=== PATIENT | female | born 1930 | race Caucasian/White ===

== ENCOUNTER 2018-01-05 07:10 | Emergency (ER) | payer OTHER, BC ==
[2018-01-05 07:21] VITALS: BMI 21.9
--- NOTE | 2018-01-05 07:24 | PDOC ---
History of Present Illness - General Chief Complaint: Lightheaded Stated Complaint: DIZZINESS Time Seen by Provider: 01/05/18 07:23 - History of Present Illness Initial Comments: 87-year-old female with PMHJ of HTN and multiple right hip procedures presents to the ED with complaints of lightheadedness when getting out of bed this morning. Says she felt well yesterday evening but when she got out of bed this morning she felt a bit lightheaded and felt the room was moving slightly so she took her Lasix and blood pressure medication. She denies nausea, vomiting, visual symptoms, or focal neurological deficit. She did not fall but states she was worried that she might so she came to the ED. Her PCP Dr. Reed told her to take her lasix whenever she feels dizzy and to come to the ED if she still isn't feeling well. Denies fevers, urinary symptoms, chills, SOB, cough, or recent illness. 01/05/18 07:25 Past History - Past Medical History Allergies/Adverse Reactions: Allergies Allergy/AdvReac Type Severity Reaction Status Date / Time No Known Drug Allergies Allergy Verified 01/05/18 07:21 Home Medications: Ambulatory Orders Alendronate Na [Fosamax] 70 mg PO Q7D 01/05/18 Metoprolol Succinate 100 mg PO DAILY 01/05/18 Nitrofurantoin Macrocrystal [Nitrofurantoin] 100 mg PO BID #10 capsule 01/05/18 Triamterene/Hydrochlorothiazid [Triamterene-Hctz 37.5-25 mg Tb] 1 each PO DAILY 01/05/18 Valsartan 320 mg PO DAILY 01/05/18 Anemia: No Asthma: No Cancer: No Cardiac Disorders: No CVA: No COPD: No CHF: No Dementia: No Diabetes: No GI Disorders: No Disorders: No HTN: Yes Hypercholesterolemia: No Liver Disease: No Seizures: No Thyroid Disease: No - Surgical History Abdominal Surgery: No Appendectomy: No Cardiac Surgery: No Cholecystectomy: No Lung Surgery: No Neurologic Surgery: No Orthopedic Surgery: Yes (RIGHT HIP AND LEG SURGERY) - Immunization History Immunization Up to Date: Yes - Suicide/Smoking/Psychosocial Hx Smoking Status: No Smoking History: Never smoked Have you smoked in the past 12 months: No Number of Cigarettes Smoked Daily: 0 If you are a former smoker, when did you quit?: 10 YRS Information on smoking cessation initiated: No Hx Alcohol Use: No Drug/Substance Use Hx: No Substance Use Type: None Hx Substance Use Treatment: No Review of Systems - Review of Systems Constitutional: No: Chills, Diaphoresis, Fever HEENTM: No: Blurred Vision, Tearing, Double Vision Respiratory: No: Cough, Shortness of Breath, Wheezing Cardiac (ROS): Yes: Lightheadedness. No: Edema, Irregular Heart Rate, Palpitations, Syncope, Chest Tightness ABD/GI: No: Constipated, Diarrhea, Nausea, Vomiting, Indigestion : No: Burning, Dysuria, Discharge Musculoskeletal: Yes: Joint Pain, Joint Stiffness Integumentary: No: Bruising, Flushing, Lesions, Lumps Neurological: Yes: Dizziness. No: Headache, Numbness, Paresthesia, Tremors, Weakness Psychiatric: No: Anxiety, Depression *Physical Exam - Vital Signs Last Vital Signs Temp Pulse Resp BP Pulse Ox 97 F L 66 16 150/72 100 01/05/18 07:19 01/05/18 07:19 01/05/18 07:19 01/05/18 07:19 01/05/18 07:19 - Physical Exam General Appearance: Yes: Nourished, Appropriately Dressed. No: Apparent Distress HEENT: positive: EOMI, COURTNEY, Normal ENT Inspection, Normal Voice Neck: positive: Trachea midline, Normal Thyroid, Supple. negative: Tender, Rigid Respiratory/Chest: negative: Chest Tender, Lungs Clear, Normal Breath Sounds ( RLLB crackles), Respiratory Distress, Accessory Muscle Use Cardiovascular: positive: Regular Rhythm, Regular Rate Gastrointestinal/Abdominal: positive: Normal Bowel Sounds, Flat, Soft. negative : Tender Musculoskeletal: positive: Decreased Range of Motion (right hip stiffness/ limited range of motion). negative: Normal Inspection Extremity: positive: Normal Capillary Refill, Normal Inspection, Normal Range of Motion. negative: Tender Integumentary: positive: Normal Color, Dry, Warm Neurologic: positive: Fully Oriented, Alert, Normal Mood/Affect, Normal Response. negative: Motor Strength 5/5 (5/5 in all extremeties except for right hip as above) ED Treatment Course - LABORATORY CBC & Chemistry Diagram: 01/05/18 07:40 01/05/18 07:38 Medical Decision Making - Medical Decision Making 87 year old female with chronic episodes of "dizziness" and lightheadensss that has been worked up extensively by Dr. Reed (including carotid dopplers and ENT evaluation) all without a determined pathology presenting with a slightly more bothersome "dizziness" episode. Unlcear if this is vertiginous, orthostatic, or supratentorial as the patient's labs demonsteated mild dehydration and her symptoms resolved with 500 mL NS. She also admits to the loss of her closest friend just two days prior so she beleives that she is feelign overall "very strange" since this event. Her UA demonstrated many WBCs, leuk esterase, and nitrites. We spoke to Dr. Reed @ 9:00 AM and he agreed with out discharge plan along with treatment for her UTI. Her EKG demonstrated NSR, QS 82, [id number] and without ST wave changes. 01/05/18 09:09 *DC/Admit/Observation/Transfer Diagnosis at time of Disposition: UTI (urinary tract infection) Qualifiers: Urinary tract infection type: acute cystitis Hematuria presence: with hematuria Qualified Code(s): N30.01 - Acute cystitis with hematuria - Discharge Dispostion Disposition: HOME Condition at time of disposition: Improved Admit: No - Prescriptions Prescriptions: Nitrofurantoin Macrocrystal [Nitrofurantoin] 100 mg PO BID #10 capsule - Referrals Referrals: Iván Reed MD [Primary Care Provider] - - Patient Instructions Printed Discharge Instructions: Urinary Tract Infection Additional Instructions: You have an infection of your urine and you were slightly dehydrated. Please drink plenty of fluid. Please take your antibiotics as directed. Please follow up with Dr. Reed in one week. Please return to the ED if you have new or worsening symptoms. - Post Discharge Activity
[2018-01-05] MEDS ORDERED: SODIUM CHLORIDE 0.9% 500 ML INFUS.BAG IV ONE (07:48)
[2018-01-05 07:53] LABS: BASO % 0.9 % (0-2.0); HEMATOCRIT 39.5 % (32.4-45.2); HEMOGLOBIN 13.4 GM/dL (10.7-15.3); LYMPH % 21.3 % (8-40); MCH 31.2 pg (25.7-33.7); MCHC 33.9 g/dl (32.0-36.0); MEAN CELL VOLUME 92.2 fl (80-96); MEAN PLT VOLUME 9.1 fl (7.5-11.1); MONO % 9.6 % (3.8-10.2); NEUT % 65.2 % (42.8-82.8); PLATELET COUNT 190 K/MM3 (134-434); RBC 4.28 M/mm3 (3.60-5.2); RDW 13.7 % (11.6-15.6); WHITE BLOOD COUNT 6.7 K/mm3 (4.0-10.0)
--- NOTE | 2018-01-05 07:56 | PDOC ---
Attending Attestation - HPI HPI: 01/05/18 08:04 The patient is a 87 year old female, with a significant past medical history of hypertension and right hip procedure, who presents to the emergency department with subjective lightheadedness this morning. She states Dr. Reed advised her to take one of her water pills which she reportedly took. She states she experiences intermittent dizziness with getting up from sitting, but denies that being new today. She reports her lightheadedness feels like room shifting, but denies room spinning sensation. She ambulates with a walker at baseline. She denies chest pain, shortness of breath, headache. She denies fever, chills, nausea, vomit, diarrhea and constipation. She denies dysuria, frequency, urgency and hematuria. Allergies: NKDA PCP: Dr. Reed - Physicial Exam PE: 01/05/18 08:04 Vitals: Triage vital signs reviewed General Appearance: No acute distress, well nourished, well developed Head: Atraumatic Eyes: Pupils equal reactive round, extraocular movement intact Neck: Supple; No nuchal rigidity Chest Wall: Nontender Cardiac: Regular rate and rhythm, no murmurs, no rubs, no gallops Lungs: Clear to auscultation bilateral, good air movement bilaterally Abdomen: Soft, nondistended, normal bowel sounds, nontender to palpation Extremities: Full range of motion to all extremities, no cyanosis, clubbing, or edema Skin: Warm and dry, no rashes or lesions, no rash, no petechiae Neuro: AOX3; Cranial Nerves 2-12 grossly intact, Strength intact to all extremities, Sensation intact to all extremities, Psych: Normal mood, normal affect - Medical Decision Making 01/05/18 08:05 This is a 87 year old female, with a significant PMHx of hypertension and right hip procedure, who presents to the emergency department with subjective lightheadedness this morning. Plan: Labs, medications, CXR, reassess 01/05/18 09:22 Documentation prepared by Olga Power, acting as medical secretary receptionist for Sav Saeed MD, <Olga Power - Last Filed: 01/05/18 09:22> - Resident Resident Name: Ninoska Walsh - ED Attending Attestation I have performed the following: I have examined & evaluated the patient, The case was reviewed & discussed with the resident, I agree w/resident's findings & plan, Exceptions are as noted - Medical Decision Making Reealuation patient feels much better ambulating comfortably around the emergency department with a steady gait. Urinalysis positive. Patient written for description of nitrofurantoin. Case discussed with patient's primary care provider Findings, the need for follow-up, strict return instructions discussed patient. <Sav Saeed - Last Filed: 01/05/18 14:06> Heart Score/ECG Review - ECG Impressions Comment:: 01/05/18 14:06 EKG performed at 7:33 AM demonstrates sinus rhythm with a ventricular rate of [address] elevations or T-wave inversions Interpreted by me. <Sav Saeed - Last Filed: 01/05/18 14:06>
[2018-01-05 08:13] LABS: URINE APPEARANCE CLOUDY; URINE BILIRUBIN NEGATIVE (<2.0 mg/dL); URINE BLOOD 1+ (NEGATIVE); URINE COLOR LTYELLOW; URINE GLUCOSE (UA) NEGATIVE (NEGATIVE); URINE KETONE NEGATIVE (NEGATIVE); URINE LEUK ESTERASE 3+ (NEGATIVE); URINE NITRITE POSITIVE (NEGATIVE); URINE PROTEIN NEGATIVE (NEGATIVE); URINE UROBILINOGEN NEGATIVE mg/dL (0.2-1.0)
[2018-01-05 08:16] LABS: EPI CELLS RARE /HPF (FEW); URINE BACTERIA MANY /hpf (NONE SEEN)
[2018-01-05 08:35] LABS: ALBUMIN 3.4 g/dl (3.4-5.0); ANION GAP 6 (8-16); BLOOD UREA NITROGEN 21 mg/dL (7-18); CALCIUM 8.3 mg/dL (8.5-10.1); CHLORIDE 107 mmol/L (98-107); CO2 27 mmol/L (21-32); GLUCOSE,RANDOM 97 mg/dL (74-106); SGPT/ALT 16 U/L (12-78); SODIUM 140 mmol/L (136-145)
[2018-01-05 08:39] LABS: ALK PHOS 85 U/L (45-117); BILIRUBIN,TOTAL 0.7 mg/dL (0.2-1.0); TOT PROT 6.3 g/dl (6.4-8.2)
[2018-01-05] MEDS ORDERED: MAG HYDROX/AL HYDROX/SIMETH 30 ML UNIT-DOSE CUP PO ONE (08:50)
[2018-01-05 08:51] LABS: POTASSIUM 4.3 mmol/L (3.5-5.1); SGOT/AST 25 U/L (15-37)
[2018-01-05 09:04] LABS: N-TERMINAL BNP 604.66 pg/ml (5-450)
[2018-01-05] MEDS ORDERED: MAG HYDROX/AL HYDROX/SIMETH 30 ML UNIT-DOSE CUP ONE (09:13)
[2018-01-05 09:43] VITALS: BP 153/74; PULSE 76; TEMP 98.1
--- NOTE | 2018-01-07 07:17 | PDOC ---
Patient Follow-up (Call Back) - Post ED Follow - Up Condition at time of discharge: Improved Disposition at time of original discharge: HOME Reason for Call Back: Abnwl. Microbiology (Urine culture preliminary report shows lactose fermenting negative bacilli. Patient currently on macrobid. Will await final report.)
--- NOTE | 2018-01-08 10:46 | EKG ---
Test Reason : Blood Pressure : / mmHG Vent. Rate : 065 BPM Atrial Rate : 065 BPM P-R Int : 174 ms QRS Dur : 082 ms QT Int : 404 ms P-R-T Axes : 051 040 052 degrees QTc Int : 420 ms NORMAL SINUS RHYTHM NORMAL ECG WHEN COMPARED WITH ECG OF 17-MAR-2016 16:25, NO SIGNIFICANT CHANGE WAS FOUND Confirmed by CYNTHIA BRISCOE MD ([id number]) on 01/08/2018 10:45:48 AM Referred By: Confirmed By:CYNTHIA BRISCOE MD
== END 2018-01-05 09:45 | disposition home or self-care (01) ==
LOC: JER 07:10
DX: N30.01 Acute cystitis with hematuria (principal); E86.0 Dehydration
CPT/HCPCS: 36415; 71045-TC-FY; 80053; 81003; 81015; 82550; 83880; 84484; 85025; 87086; 87186; 93005; 93010; 99284-25

== ENCOUNTER 2018-01-18 09:52 | Observation (INO) | payer OTHER, BC ==
[2018-01-18 10:30] VITALS: BMI 21.9
--- NOTE | 2018-01-18 11:09 | PDOC ---
History of Present Illness - General Chief Complaint: Lightheaded Stated Complaint: NAUSEA, DIZZINESS Time Seen by Provider: 01/18/18 10:22 History Source: Patient - History of Present Illness Associated Symptoms: denies: chest pain, diaphoresis, fever/chills, headaches, loss of appetite, malaise, nausea/vomiting, shortness of breath, syncope, weakness Past History - Past Medical History Allergies/Adverse Reactions: Allergies Allergy/AdvReac Type Severity Reaction Status Date / Time No Known Drug Allergies Allergy Verified 01/18/18 10:25 Home Medications: Ambulatory Orders Alendronate Na [Fosamax] 70 mg PO Q7D 01/05/18 Metoprolol Succinate 100 mg PO DAILY 01/05/18 Nitrofurantoin Macrocrystal [Nitrofurantoin] 100 mg PO BID #10 capsule 01/05/18 Nitrofurantoin Monohyd/M-Cryst [Macrobid -] 100 mg PO BID #10 capsule 01/05/18 Triamterene/Hydrochlorothiazid [Triamterene-Hctz 37.5-25 mg Tb] 1 each PO DAILY 01/05/18 Valsartan 320 mg PO DAILY 01/05/18 Anemia: No Asthma: No Cancer: No Cardiac Disorders: No CVA: No COPD: No CHF: No Dementia: No Diabetes: No GI Disorders: No Disorders: No HTN: Yes Hypercholesterolemia: No Liver Disease: No Seizures: No Thyroid Disease: No - Surgical History Abdominal Surgery: Yes (PT UNSURE) Appendectomy: No Cardiac Surgery: No Cholecystectomy: No Lung Surgery: No Neurologic Surgery: No Orthopedic Surgery: Yes (RIGHT HIP AND LEG SURGERY) - Immunization History Immunization Up to Date: Yes - Suicide/Smoking/Psychosocial Hx Smoking Status: No Smoking History: Former smoker Have you smoked in the past 12 months: No Number of Cigarettes Smoked Daily: 0 If you are a former smoker, when did you quit?: 10 YRS Information on smoking cessation initiated: No Hx Alcohol Use: No Drug/Substance Use Hx: No Substance Use Type: None Hx Substance Use Treatment: No Review of Systems - Review of Systems Constitutional: No: Chills, Fever, Loss of Appetite, Weakness Respiratory: No: Shortness of Breath Cardiac (ROS): Yes: Lightheadedness. No: Chest Pain, Edema, Palpitations, Syncope ABD/GI: No: Diarrhea, Nausea, Vomiting, Abdominal cramping : No: Dysuria, Flank Pain, Hematuria Neurological: Yes: Dizziness. No: Headache, Numbness, Tingling, Weakness *Physical Exam - Vital Signs Last Vital Signs Temp Pulse Resp BP Pulse Ox 97.6 F 74 19 153/70 98 01/18/18 10:26 01/18/18 10:26 01/18/18 10:26 01/18/18 10:01/18/18 10:26 - Physical Exam General Appearance: Yes: Appropriately Dressed. No: Apparent Distress HEENT: positive: Normal Voice Neck: positive: Supple Respiratory/Chest: positive: Lungs Clear, Normal Breath Sounds. negative: Respiratory Distress Cardiovascular: positive: Regular Rate, S1, S2 Gastrointestinal/Abdominal: positive: Soft. negative: Tender Extremity: negative: Pedal Edema Integumentary: positive: Dry, Warm Neurologic: positive: Fully Oriented, Alert, Normal Mood/Affect ED Treatment Course - LABORATORY CBC & Chemistry Diagram: 01/18/18 11:15 01/18/18 11:15 - RADIOLOGY Radiology Studies Ordered: Category Date Time Status CHEST X-RAY PORTABLE* [RAD] Stat Radiology 01/18/18 10:25 Ordered Medical Decision Making - Medical Decision Making 01/18/18 11:02 87-year-old female, history of hypertension, here with dizziness. Patient reports that the past 2-3 weeks has had lightheadedness mostly noticed upon walking that usually resolve on its own after several minutes. Does find that sometimes when she eats, dizziness resolves. No sensation of the room spinning , headache, visual changes, focal weakness, nausea, vomiting, chest pain, shortness of breath or syncope. No recent cardiac workup and no known history of CAD. Patient was seen in ED 2 weeks ago for dizziness and was diagnosed with UTI and discharged on Macrobid, which was sensitive on follow-up culture. Patient states she has seen since her PMD, Dr. Reed, and taken off her triamterene -hydrochlorothiazide med after informing M.D. that she has to wake up frequently throughout the night to urinate. States M.D. informed her that dizziness was due "to my age" as per patient. Currently asymptomatic at this time See exam Dizziness Unclear etiology at this time but possibly cardiac (given worsening upon walking ) vs metabolic, no infectious sxs but was tx for UTI 2 weeks ago, ? neuro but unlikely TIA/CVA given duration Stable and well chao w/ unremarkable exam -ekg -cxr -labs -m/l admit for further evaluation/cardiac w/u 01/18/18 12:52 Case d/w Dr Toney and pt admitted to obs *DC/Admit/Observation/Transfer Diagnosis at time of Disposition: Lightheaded - Discharge Dispostion Condition at time of disposition: Fair Decision to Admit order: Yes - Referrals Referrals: Iván Reed MD [Primary Care Provider] - - Patient Instructions - Post Discharge Activity
[2018-01-18 11:26] LABS: BASO % 1.1 % (0-2.0); EOS % 1.4 % (0-4.5); HEMATOCRIT 42.7 % (32.4-45.2); HEMOGLOBIN 14.3 GM/dL (10.7-15.3); LYMPH % 17.6 % (8-40); MCH 31.1 pg (25.7-33.7); MCHC 33.4 g/dl (32.0-36.0); MEAN CELL VOLUME 92.9 fl (80-96); MEAN PLT VOLUME 9.4 fl (7.5-11.1); MONO % 9.9 % (3.8-10.2); PLATELET COUNT 208 K/MM3 (134-434); RBC 4.59 M/mm3 (3.60-5.2); RDW 14.3 % (11.6-15.6); WHITE BLOOD COUNT 8.1 K/mm3 (4.0-10.0)
[2018-01-18 11:30] LABS: URINE APPEARANCE CLEAR; URINE BILIRUBIN NEGATIVE (<2.0 mg/dL); URINE COLOR STRAW; URINE GLUCOSE (UA) NEGATIVE (NEGATIVE); URINE KETONE NEGATIVE (NEGATIVE); URINE LEUK ESTERASE NEGATIVE (NEGATIVE); URINE NITRITE NEGATIVE (NEGATIVE); URINE PROTEIN NEGATIVE (NEGATIVE); URINE UROBILINOGEN NEGATIVE mg/dL (0.2-1.0)
--- NOTE | 2018-01-18 11:34 | PDOC ---
*Physical Exam - Vital Signs Last Vital Signs Temp Pulse Resp BP Pulse Ox 97.6 F 74 19 153/70 98 01/18/18 10:26 01/18/18 10:26 01/18/18 10:26 01/18/18 10:26 01/18/18 10:26 - Physical Exam Comments: 01/18/18 11:34 The patient was examined by [ALEX Wallis] under my direct supervision. I personally evaluated the patient. I concur with the above findings and the plan of care. ED Treatment Course - LABORATORY CBC & Chemistry Diagram: 01/18/18 11:15 01/19/18 06:00 - ADDITIONAL ORDERS Additional order review: Laboratory Results 01/18/18 11:15 Urine Color Straw Urine Appearance Clear Urine pH 6.0 Ur Specific [place] 1.005 Urine Protein Negative Urine Glucose (UA) Negative Urine Ketones Negative Urine Blood Negative Urine Nitrite Negative Urine Bilirubin Negative Urine Urobilinogen Negative Ur Leukocyte Esterase Negative 01/18/18 11:15 RBC 4.59 MCV 92.9 MCHC 33.4 RDW 14.3 MPV 9.4 Neutrophils % 70.0 Lymphocytes % 17.6 Monocytes % 9.9 Eosinophils % 1.4 Basophils % 1.1 *DC/Admit/Observation/Transfer Diagnosis at time of Disposition: Lightheaded - Discharge Dispostion Disposition: HOME Condition at time of disposition: Fair - Prescriptions - Referrals - Patient Instructions - Post Discharge Activity
--- NOTE | 2018-01-18 12:00 | EKG ---
Test Reason : Blood Pressure : / mmHG Vent. Rate : 058 BPM Atrial Rate : 058 BPM P-R Int : 164 ms QRS Dur : 070 ms QT Int : 420 ms P-R-T Axes : 070 020 042 degrees QTc Int : 412 ms POOR DATA QUALITY, INTERPRETATION MAY BE ADVERSELY AFFECTED SINUS BRADYCARDIA LOW VOLTAGE QRS BORDERLINE ECG WHEN COMPARED WITH ECG OF 05-JAN-2018 07:33, NO SIGNIFICANT CHANGE WAS FOUND Confirmed by SALO JOYNER MD ([id number]) on 01/18/2018 12:00:26 PM Referred By: Confirmed By:SALO JOYNER MD
[2018-01-18] MEDS ORDERED: SODIUM CHLORIDE 500 ML IV STA (13:19)
[2018-01-18 13:43] LABS: ALBUMIN 3.9 g/dl (3.4-5.0); ANION GAP 9 (8-16); BLOOD UREA NITROGEN 17 mg/dL (7-18); CALCIUM 9.6 mg/dL (8.5-10.1); CHLORIDE 101 mmol/L (98-107); CO2 28 mmol/L (21-32); GLUCOSE,RANDOM 91 mg/dL (74-106); POTASSIUM 4.1 mmol/L (3.5-5.1); SODIUM 138 mmol/L (136-145)
[2018-01-18 13:50] LABS: ALK PHOS 90 U/L (45-117); SGOT/AST 20 U/L (15-37); SGPT/ALT 16 U/L (12-78); TOT PROT 6.9 g/dl (6.4-8.2)
[2018-01-19 08:45] LABS: ALBUMIN 3.1 g/dl (3.4-5.0); BLOOD UREA NITROGEN 16 mg/dL (7-18); CHLORIDE 108 mmol/L (98-107); GLUCOSE,RANDOM 81 mg/dL (74-106); POTASSIUM 4.2 mmol/L (3.5-5.1); SGPT/ALT 14 U/L (12-78); SODIUM 142 mmol/L (136-145)
[2018-01-19 08:52] LABS: ALK PHOS 68 U/L (45-117); ANION GAP 4 (8-16); CALCIUM 8.4 mg/dL (8.5-10.1); CO2 30 mmol/L (21-32); CREATININE 0.9 mg/dL (0.55-1.02); SGOT/AST 18 U/L (15-37); TOT PROT 5.7 g/dl (6.4-8.2)
[2018-01-19 09:15] VITALS: BP 139/73; PULSE 69; TEMP 98
--- NOTE | 2018-01-19 12:50 | DS ---
Physical Examination Vital Signs: Vital Signs Temperature 98.0 F 01/19/18 09:14 Pulse Rate 69 01/19/18 09:14 Respiratory Rate 18 01/19/18 09:14 Blood Pressure 139/73 01/19/18 09:14 O2 Sat by Pulse Oximetry (%) 96 01/18/18 21:00 Labs: CBC, BMP 01/18/18 11:15 01/19/18 06:00 Discharge Summary Reason For Visit: LIGHTHEADEDNESS Current Active Problems Lightheaded (Acute) Condition: Fair - Instructions Referrals: Iván Reed MD [Primary Care Provider] - - Home Medications Comprehensive Discharge Medication List: Ambulatory Orders Alendronate Na [Fosamax] 70 mg PO Q7D 01/05/18 Metoprolol Succinate 100 mg PO DAILY 01/05/18 Valsartan 320 mg PO DAILY 01/05/18
--- NOTE | 2018-01-19 12:50 | HP ---
Admitting History and Physical - Smoking History Smoking history: Former smoker Have you smoked in the past 12 months: No Aproximately how many cigarettes per day: 0 If you are a former smoker, when did you quit?: 10 YRS - Alcohol/Substance Use Hx Alcohol Use: No Home Medications - Allergies Allergies/Adverse Reactions: Allergies Allergy/AdvReac Type Severity Reaction Status Date / Time No Known Drug Allergies Allergy Verified 01/18/18 10:25 - Home Medications Home Medications: Ambulatory Orders Alendronate Na [Fosamax] 70 mg PO Q7D 01/05/18 Metoprolol Succinate 100 mg PO DAILY 01/05/18 Valsartan 320 mg PO DAILY 01/05/18 Physical Examination Vital Signs: Vital Signs Temperature 98.0 F 01/19/18 09:14 Pulse Rate 69 01/19/18 09:14 Respiratory Rate 18 01/19/18 09:14 Blood Pressure 139/73 01/19/18 09:14 O2 Sat by Pulse Oximetry (%) 96 01/18/18 21:00 Labs: CBC, BMP 01/18/18 11:15 01/19/18 06:00
== END 2018-01-19 13:33 | disposition home or self-care (01) ==
LOC: JER 09:52 → JERBED 12:51 → J7W 14:50
PROVIDERS: ADMIT Internal Medicine; ATTEND Internal Medicine
PROC: 3E0337Z Introduction of Electrolytic and Water Balance Substance into Peripheral Vein, Percutaneous Approach (ICD-10-PCS; principal; 2018-01-18)
DX: R42 Dizziness and giddiness (principal); I10 Essential (primary) hypertension; Z87.891 Personal history of nicotine dependence
CPT/HCPCS: 36415; 70450-TC; 71045-TC-FY; 80053; 81003; 82550; 82607; 84484; 85025; 93005; 93010; 96360; 97116-GP; 97161-GP; 99284-25; G0378

== ENCOUNTER 2018-01-23 09:00 | Emergency (ER) | payer OTHER, BC ==
[2018-01-23 09:46] VITALS: TEMP 97.7; BMI 21.9
--- NOTE | 2018-01-23 10:12 | PDOC ---
History of Present Illness <Olga Power - Last Filed: 01/23/18 11:48> - History of Present Illness Initial Comments: 01/23/18 09:57 The patient is a 87 year old female, with a significant past medical history of hypertension, who presents to the emergency department with subjective lightheadedness this morning. The patient was recently admitted to the hospital for similar complaint, had normal lab work and head CT, and was discharged on 06/29. The patient states that upon discharge, Dr. Margaret Timmons advised to her to stop taking valsartan and her water pill and to decreased her metoprolol to 50mg from her usual 100mg. Pt states that she was told her dizziness was related to taking too many BP meds. She reports feeling well after discharge until she woke up today, when she experienced lightheadedness again. The patient states she was afraid to drive herself to the doctor and called EMS because she was concerned her blood pressure was low. However, EMS did not have a functional BP cuff, so pt was brought here. Pt reports that the lightheadedness seems to be triggered by her "nerves". She states that she received a notice last night that her cousin had . Pt currently denies any symptoms. States that her lightheadedness has resolved on its own. She denies chest pain, shortness of breath, headache. She denies fever, chills, nausea, vomit, diarrhea and constipation. She denies dysuria, frequency, urgency and hematuria. Allergies: NKDA PCP: Dr. Reed <Rj Hernandez - Last Filed: 01/23/18 12:00> - General Chief Complaint: Lightheaded Stated Complaint: Lightheaded Time Seen by Provider: 01/23/18 09:11 Past History <Olga Power - Last Filed: 01/23/18 11:48> - Past Medical History Anemia: No Asthma: No Cancer: No Cardiac Disorders: No CVA: No COPD: No CHF: No Dementia: No Diabetes: No GI Disorders: No Disorders: No HTN: Yes Hypercholesterolemia: No Liver Disease: No Seizures: No Thyroid Disease: No - Surgical History Abdominal Surgery: Yes (PT UNSURE) Appendectomy: No Cardiac Surgery: No Cholecystectomy: No Lung Surgery: No Neurologic Surgery: No Orthopedic Surgery: Yes (RIGHT HIP AND LEG SURGERY) - Immunization History Immunization Up to Date: Yes - Suicide/Smoking/Psychosocial Hx Smoking Status: No Smoking History: Never smoked Have you smoked in the past 12 months: No Number of Cigarettes Smoked Daily: 0 If you are a former smoker, when did you quit?: 10 YRS Information on smoking cessation initiated: No Hx Alcohol Use: No Drug/Substance Use Hx: No Substance Use Type: None Hx Substance Use Treatment: No <Rj Hernandez - Last Filed: 01/23/18 12:00> - Past Medical History Allergies/Adverse Reactions: Allergies Allergy/AdvReac Type Severity Reaction Status Date / Time No Known Drug Allergies Allergy Verified 01/23/18 09:45 Home Medications: Ambulatory Orders Alendronate Na [Fosamax (Weekly)] 70 mg PO Q7D 01/05/18 Metoprolol Succinate [Toprol XL -] 50 mg PO DAILY@0800 #30 tab.sr.24h 01/19/18 Review of Systems - Review of Systems Comments:: 01/23/18 10:12 """GENERAL/CONSTITUTIONAL: No fever or chills. No weakness. HEAD, EYES, EARS, NOSE AND THROAT: No change in vision. No ear pain or discharge. No sore throat. CARDIOVASCULAR: No chest pain or shortness of breath. RESPIRATORY: No cough, wheezing, or hemoptysis. GASTROINTESTINAL: No nausea, vomiting, diarrhea or constipation. GENITOURINARY: No dysuria, frequency, or change in urination. MUSCULOSKELETAL: No joint or muscle swelling or pain. No neck or back pain. SKIN: No rash NEUROLOGIC: (+) lightheaded. No headache, vertigo, loss of consciousness, or change in strength/sensation. ENDOCRINE: No increased thirst. No abnormal weight change. HEMATOLOGIC/LYMPHATIC: No anemia, easy bleeding, or history of blood clots. ALLERGIC/IMMUNOLOGIC: No hives or skin allergy. """ <Rj Hernandez - Last Filed: 01/23/18 12:00> *Physical Exam - Vital Signs Last Vital Signs Temp Pulse Resp BP Pulse Ox 97.7 F 82 16 152/76 100 01/23/18 09:43 01/23/18 09:43 01/23/18 09:43 01/23/18 09:43 01/23/18 09:43 <Olga Power - Last Filed: 01/23/18 11:48> - Vital Signs Last Vital Signs Temp Pulse Resp BP Pulse Ox 97.7 F 82 16 152/76 100 01/23/18 09:43 01/23/18 09:43 01/23/18 09:43 01/23/18 09:43 01/23/18 09:43 - Physical Exam Comments: 01/23/18 10:12 """GENERAL: Awake, alert, and fully oriented, in no acute distress. HEAD: No signs of trauma EYES: PERRLA, EOMI, sclera anicteric, conjunctiva clear ENT: Auricles normal inspection, hearing grossly normal, nares patent, oropharynx clear without exudates. Moist mucosa NECK: Nontender, no stepoffs, Normal ROM, supple, no lymphadenopathy, JVD, or masses LUNGS: Breath sounds equal, clear to auscultation bilaterally. No wheezes, and no crackles HEART: Regular rate and rhythm, normal S1 and S2, no murmurs, rubs or gallops ABDOMEN: Soft, nontender, normoactive bowel sounds. No guarding, no rebound. No masses EXTREMITIES: Normal range of motion, no edema. No clubbing or cyanosis. No cords, erythema, or tenderness NEUROLOGICAL: Cranial nerves II through XII intact. 5/5 strength and sensation in all extremities, Normal speech, normal gait, normal cerebellar function SKIN: Warm, Dry, normal turgor, no rashes or lesions noted. """ <OuRj - Last Filed: 01/23/18 12:00> Heart Score/ECG Review - ECG Impressions Comment:: 01/23/18 10:12 NSR, no [place]/STDs, no TWIs, axis wnl, intervals wnl, rate 75 <Ou,Rj - Last Filed: 01/23/18 12:00> ED Treatment Course - LABORATORY CBC & Chemistry Diagram: 01/23/18 10:50 01/23/18 10:50 - ADDITIONAL ORDERS Additional order review: Laboratory Results 01/23/18 01/23/18 01/23/18 10:50 10:50 10:50 Sodium 141 Potassium 3.8 Chloride 106 Carbon Dioxide 29 Anion Gap 6 L BUN 14 Creatinine 0.9 Creat Clearance w eGFR 59.51 Random Glucose 92 Calcium 8.6 Total Bilirubin 0.9 AST 16 ALT 18 Alkaline Phosphatase 85 Creatine Kinase 29 Troponin I < 0.02 Total Protein 6.3 L Albumin 3.4 Urine Color Straw Urine Appearance Clear Urine pH 6.0 Ur Specific [place] 1.006 Urine Protein Negative Urine Glucose (UA) Negative Urine Ketones Negative Urine Blood Negative Urine Nitrite Negative Urine Bilirubin Negative Urine Urobilinogen Negative Ur Leukocyte Esterase Negative 01/23/18 10:50 RBC 4.54 MCV 91.6 MCHC 33.8 RDW 14.0 MPV 9.1 Neutrophils % 71.3 Lymphocytes % 18.2 Monocytes % 9.3 Eosinophils % 0.6 Basophils % 0.6 <Olga Power - Last Filed: 01/23/18 11:48> - LABORATORY CBC & Chemistry Diagram: 01/23/18 10:50 01/23/18 10:50 <Rj Hernandez - Last Filed: 01/23/18 12:00> Medical Decision Making - Medical Decision Making 01/23/18 11:48 Dr. Reed called at the office. Case discussed at this time. <Olga Power - Last Filed: 01/23/18 11:48> - Medical Decision Making 01/23/18 10:14 87 F with transient lightheadedness. Was previously admitted earlier this month for same complaint. Had negative cardiac work up and head CT. Symptoms at the time were thought to be 2/2 BP meds. Pt is asymptomatic in the ED and hemodynamically stable. EKG normal, making cardiac event unlikely. Pt with no neuro deficits to suggest neurogenic cause of lightheadedness. - Labs, trop - UA - orthostatics 01/23/18 11:58 Labs wnl Orthostats wnl - standing BP 140/88 Pt ambulatory with steady gait Discussed with Dr. Reed, who will see pt in office this Tuesday. Pt is well appearing, with normal vitals. Clinically stable for DC at this time. I discussed the physical exam findings, ancillary test results and final diagnoses with the patient. I answered all of the patient's questions. The patient was satisfied with the care received and felt comfortable with the discharge plan and treatment plan. The patient agrees to follow up with the primary care physician within 24-72 hours. <Rj Hernandez - Last Filed: 01/23/18 12:00> *DC/Admit/Observation/Transfer <Olga Power - Last Filed: 01/23/18 11:48> - Attestations Physician Attestion: 01/23/18 11:59 I, Dr. Rj Hernandez MD, attest that this document has been prepared under my direction and personally reviewed by me in its entirety. I further attest, that it accurately reflects all work, treatment, procedures and medical decision -making performed by me. <Rj Hernandez - Last Filed: 01/23/18 12:00> Diagnosis at time of Disposition: Lightheaded - Discharge Dispostion Disposition: HOME - Referrals Referrals: Iván Reed MD [Primary Care Provider] - - Patient Instructions Printed Discharge Instructions: DI for Dizziness-Nonvertigo Additional Instructions: Please follow up with Dr. Reed this Tuesday. Continue taking your medications as instructed. If you experience recurrent dizziness, chest pain, shortness of breath, or any other concerning symptoms, return to the ER immediately. - Post Discharge Activity
--- NOTE | 2018-01-23 10:46 | EKG ---
Test Reason : Blood Pressure : / mmHG Vent. Rate : 075 BPM Atrial Rate : 075 BPM P-R Int : 156 ms QRS Dur : 066 ms QT Int : 398 ms P-R-T Axes : 049 008 032 degrees QTc Int : 444 ms NORMAL SINUS RHYTHM NORMAL ECG WHEN COMPARED WITH ECG OF 18-JAN-2018 11:14, NO SIGNIFICANT CHANGE WAS FOUND Confirmed by RENZO CASTELLON MD ([id number]) on 01/23/2018 10:45:42 AM Referred By: Confirmed By:RENZO CASTELLON MD
[2018-01-23 11:01] LABS: BASO % 0.6 % (0-2.0); EOS % 0.6 % (0-4.5); HEMATOCRIT 41.6 % (32.4-45.2); HEMOGLOBIN 14.1 GM/dL (10.7-15.3); LYMPH % 18.2 % (8-40); MCHC 33.8 g/dl (32.0-36.0); MEAN CELL VOLUME 91.6 fl (80-96); MEAN PLT VOLUME 9.1 fl (7.5-11.1); MONO % 9.3 % (3.8-10.2); NEUT % 71.3 % (42.8-82.8); PLATELET COUNT 196 K/MM3 (134-434); RBC 4.54 M/mm3 (3.60-5.2); WHITE BLOOD COUNT 6.9 K/mm3 (4.0-10.0)
[2018-01-23 11:02] LABS: URINE APPEARANCE CLEAR; URINE BILIRUBIN NEGATIVE (<2.0 mg/dL); URINE COLOR STRAW; URINE GLUCOSE (UA) NEGATIVE (NEGATIVE); URINE KETONE NEGATIVE (NEGATIVE); URINE LEUK ESTERASE NEGATIVE (NEGATIVE); URINE NITRITE NEGATIVE (NEGATIVE); URINE PROTEIN NEGATIVE (NEGATIVE); URINE UROBILINOGEN NEGATIVE mg/dL (0.2-1.0)
[2018-01-23 11:35] LABS: ALBUMIN 3.4 g/dl (3.4-5.0); ANION GAP 6 (8-16); BLOOD UREA NITROGEN 14 mg/dL (7-18); CALCIUM 8.6 mg/dL (8.5-10.1); CHLORIDE 106 mmol/L (98-107); CO2 29 mmol/L (21-32); CREATININE 0.9 mg/dL (0.55-1.02); GLUCOSE,RANDOM 92 mg/dL (74-106); POTASSIUM 3.8 mmol/L (3.5-5.1); SGOT/AST 16 U/L (15-37); SGPT/ALT 18 U/L (12-78); SODIUM 141 mmol/L (136-145)
[2018-01-23 11:37] LABS: ALK PHOS 85 U/L (45-117); BILIRUBIN,TOTAL 0.9 mg/dL (0.2-1.0); TOT PROT 6.3 g/dl (6.4-8.2)
[2018-01-23 14:28] VITALS: BP 145/86; PULSE 69
== END 2018-01-23 12:05 | disposition home or self-care (01) ==
LOC: JER 09:00
DX: R42 Dizziness and giddiness (principal); I10 Essential (primary) hypertension
CPT/HCPCS: 36415; 80053; 81003; 82550; 84484; 85025; 87086; 93005; 93010; 99282-25

== ENCOUNTER 2019-07-06 14:18 | Emergency (ER) | payer OTHER, BC ==
[2019-07-06 14:41] VITALS: BMI 23.5
--- NOTE | 2019-07-06 14:50 | PDOC ---
History of Present Illness - General Chief Complaint: Back Pain Stated Complaint: BACK PAIN Time Seen by Provider: 07/06/19 14:50 - History of Present Illness Initial Comments: 07/06/19 14:53 88 year old with a history of HTN and intermittent low back pain who presents from [facility] with worsening low back pain for 1 week. She [facility] which showed lumbar spinal stenosis. The patient was scheduled for an outpt MRI and prescribed celebrex. The patient reports that the pain has been worse around the low despite taking tylenol and celebrex and she does not feel she can wait until her MRI. The patient reports the pain is worse with any movement. She denies any numbness or tingling or any changes in sensation in the groin or legs. She denies any incontinence of stool or urine. She has no other complaints. ROS GENERAL/CONSTITUTIONAL: No fever or chills. No weakness. HEAD, EYES, EARS, NOSE AND THROAT: No change in vision. No ear pain or discharge. No sore throat. CARDIOVASCULAR: No chest pain or shortness of breath RESPIRATORY: No cough, wheezing, or hemoptysis. GASTROINTESTINAL: No nausea, vomiting, diarrhea or constipation. GENITOURINARY: No dysuria, frequency, or change in urination. MUSCULOSKELETAL: No joint or muscle swelling or pain. No neck + back pain. SKIN: No rash NEUROLOGIC: No headache, vertigo, loss of consciousness, or change in strength/ sensation. ENDOCRINE: No increased thirst. No abnormal weight change HEMATOLOGIC/LYMPHATIC: No anemia, easy bleeding, or history of blood clots. ALLERGIC/IMMUNOLOGIC: No hives or skin allergy. PE GENERAL: Awake, alert, and fully oriented, in no acute distress HEAD: No signs of trauma, normocephalic, atraumatic EYES: EOMI, sclera anicteric, conjunctiva clear ENT: oropharynx clear without exudates. Moist mucosa NECK: Normal ROM, supple LUNGS: No distress, speaks full sentences, clear to auscultation bilaterally HEART: Regular rate and rhythm, normal S1 and S2, no murmurs, rubs or gallops, peripheral pulses normal and equal bilaterally. ABDOMEN: Soft, nontender No guarding, no rebound. No masses BACK: +paraspinal and lumbar spinal tenderness, no step offs EXTREMITIES : Normal inspection, Normal range of motion, no edema. No clubbing or cyanosis. NEUROLOGICAL: Cranial nerves II through XII grossly intact. Normal speech, no focal sensorimotor deficits SKIN: Warm, Dry, normal turgor, no rashes or lesions noted MDM DDX including but not limited to: [facility] ED Course: robaxin and lidocaine patch given patient reassessed with imporvment of pain and able to ambulate at baseline patient ready for discharge, pending transport, endorsed to overnight team Clare Arellano PGY2 Emergency Medicine Past History - Past Medical History Allergies/Adverse Reactions: Allergies Allergy/AdvReac Type Severity Reaction Status Date / Time No Known Drug Allergies Allergy Verified 01/23/18 09:45 Home Medications: Ambulatory Orders Celecoxib [Celebrex -] 200 mg PO BID 07/06/19 Lidocaine 5% Patch [Lidoderm -] 1 patch TP DAILY #7 patch 07/06/19 Lidocaine 5% Patch [Lidoderm Patch -] 1 patch TP DAILY #30 patch 07/06/19 Meclizine HCl [Antivert -] 12.5 mg PO TID 07/06/19 Methocarbamol [Robaxin -] 500 mg PO BID #6 tablet 07/06/19 Methocarbamol [Robaxin -] 500 mg PO BID #60 tablet 07/06/19 Metoprolol Succinate 50 mg PO DAILY 07/06/19 Omeprazole Magnesium [Prilosec] 40 mg PO DAILY 07/06/19 Anemia: No Asthma: No Cancer: No Cardiac Disorders: No CVA: No COPD: No CHF: No Dementia: No Diabetes: No GI Disorders: No Disorders: No HTN: Yes Hypercholesterolemia: No Liver Disease: No Seizures: No Thyroid Disease: No - Surgical History Abdominal Surgery: Yes (PT UNSURE) Appendectomy: No Cardiac Surgery: No Cholecystectomy: No Lung Surgery: No Neurologic Surgery: No Orthopedic Surgery: Yes (RIGHT HIP AND LEG SURGERY) - Immunization History Immunization Up to Date: Yes - Psycho Social/Smoking Cessation Hx Smoking Status: No Smoking History: Never smoked Have you smoked in the past 12 months: No Number of Cigarettes Smoked Daily: 0 If you are a former smoker, when did you quit?: 10 YRS Information on smoking cessation initiated: No Hx Alcohol Use: No Drug/Substance Use Hx: No Substance Use Type: None Hx Substance Use Treatment: No *Physical Exam - Vital Signs Last Vital Signs Temp Pulse Resp BP Pulse Ox 97.7 F 68 18 151/54 L 98 07/06/19 14:39 07/06/19 14:39 07/06/19 14:39 07/06/19 14:39 07/06/19 14:39 Discharge - Discharge Information Problems reviewed: Yes Clinical Impression/Diagnosis: Low back pain Condition: Stable Disposition: HOME - Admission No - Additional Discharge Information Prescriptions: Lidocaine 5% Patch [Lidoderm -] 1 patch TP DAILY #7 patch Lidocaine 5% Patch [Lidoderm Patch -] 1 patch TP DAILY #30 patch Methocarbamol [Robaxin -] 500 mg PO BID #6 tablet Methocarbamol [Robaxin -] 500 mg PO BID #60 tablet - Follow up/Referral Referrals: Iván Reed MD [Primary Care Provider] - - Patient Discharge Instructions Patient Printed Discharge Instructions: DI for Low Back Pain Additional Instructions: You were seen in the ED for complaints of low back pain You had improvement with muscle relaxants and lidocaine patch You have been prescribed robaxin and lidocaine patch to be used until you can see your Family Doctor Please keep your MRI appointment Return to the ED if you have numbness, tingling, incontinence of urine or stool or any other concerning symptoms. - Post Discharge Activity
--- NOTE | 2019-07-06 15:03 | PDOC ---
Attending Attestation - Resident Resident Name: Clare Arellano - HPI HPI: 07/06/19 17:32 Pt with history of chronic back pain presents to the ED complaining of an acute exacerbation of her chronic back pain. Denies trauma, denies neurologic, bowel or bladder symptoms. Xrays done at the [facility] show spinal stenosis. Patient has follow up with pain management and MRI scheduled for next week. Presents today because the pain was severe and the patient did not want to wait for next week to get pain control. Requesting MRI today. - Physicial Exam PE: 07/06/19 17:37 Agree with resident exam. Patient is alert and oriented and in no acute distress. Ambulates with a walker at baseline--able to ambulate with help in the ED. No point tenderness, step off or deformity of her back. - Medical Decision Making 07/06/19 17:40 PT presents to the ED complaining of acute exacerbation of her chronic back pain. Imaging performed at the [facility] and is negative for fx. Patient already has follow up with pain management and outpt MRI. Feels improved with lidocaine patch and muscle relaxant in the ED. Will discharge home with instructions to follow up next week with PCP
[2019-07-06] MEDS ORDERED: LIDOCAINE 5% TOPICAL PATCH TP ONE (15:21)
[2019-07-06] MEDS ORDERED: METHOCARBAMOL 500 MG TABLET PO ONE (15:21)
[2019-07-06] MEDS ORDERED: METHOCARBAMOL 500 MG TABLET ONE (15:54)
[2019-07-06] MEDS ORDERED: LIDOCAINE 5% TOPICAL PATCH ONE (15:54)
[2019-07-06 17:24] VITALS: BP 142/80; PULSE 72; TEMP 97.8
== END 2019-07-06 19:00 | disposition home or self-care (01) ==
LOC: JER 14:18
DX: M54.5 Low back pain (principal); G89.29 Other chronic pain; I10 Essential (primary) hypertension
CPT/HCPCS: 99282-25

== ENCOUNTER 2019-07-17 21:18 | Emergency (ER) | payer OTHER, BC ==
[2019-07-17 21:36] VITALS: BP 102/50; PULSE 60; TEMP 97.8; BMI 23.5
--- NOTE | 2019-07-17 22:44 | PDOC ---
Documentation entered by Lilliam Brown SCRIBE, acting as scribe for Billie Espinal MD. Billie Espinal MD: This documentation has been prepared by the Kevin hardin Aiswarya, SCRIBE, under my direction and personally reviewed by me in its entirety. I confirm that the documentation accurately reflects all work, treatment, procedures, and medical decision making performed by me. History of Present Illness - General Chief Complaint: Injury Stated Complaint: FELL,HIT HEAD, DENIES LOC History Source: Patient Exam Limitations: No Limitations - History of Present Illness Initial Comments: 07/17/19 21:48 The patient is a 88 year old female, with a significant PMH of HTN, who presents to the emergency department via [facility] for evaluation of a fall that occurred today. The patient states she lost her balance and fell, hitting the occipital region of her head. Patient states she did not lose consciousness but reports head and neck pain. The patient denies any vision changes, numbness or tingling. Denies chest pain, shortness of breath , headache and dizziness. Denies fever, chills, nausea, vomit, diarrhea and constipation. PAST MEDICAL HISTORY: HTN PAST SURGICAL HISTORY: right hip and leg surgery FAMILY HISTORY: no pertinent history SOCIAL HISTORY: Pt lives with family and is employed. MEDICATIONS: reviewed ALLERGIES: As per nursing notes Adult ROS General: No fevers or chills, no weakness, no weight loss HEENT: No change in vision. No sore throat,. No ear pain CardioVascular: No chest pain or shortness of breath Respiratory:No cough, or wheezing. Gastrointestinal: no nausea, vomiting, diarrhea or constipation, No rectal bleeding Genitourinary: No dysuria, hematuria, or frequency Musculoskeletal: + neck pain Neurologic: No headache, vertigo, dizziness or loss of consciousness Psychiatric: nor depression Skin:+head contusion Endocrine: no increased thirst or abnormal weight change Allergic: no skin or latex allergy All other systems reviewed and normal Adult Exam: General: Well-nourished well-developed individual, no acute distress HEENT: Throat: Normal, tonsils normal, no erythema or exudate Neck: Supple, no meningeal signs, no lymphadenopathy Eyes::Pupils equal reactive and round, extraocular motion intact Chest: Nontender to palpation Cardiac: S1-S2 normal, regular rate and rhythm, no murmurs rubs or gallops Respiratory: Lungs clear to auscultation bilateral Abdomen: Soft, nondistended, normal bowel sounds, nontender to palpation diffusely Extremities: Warm, dry, no cyanosis, clubbing, or edema Skin: +contusion posterior occipital area. Skin intact.No rashes Neuro: Alert and oriented x3, nonfocal exam, grossly intact, normal gait Psych: Normal mood and affect Assessment and plan: This is a 88-year-old female who lives at the assisted living [facility]. Patient said she slipped lost her balance and fell hitting her posterior occipital area. Patient denies any loss of consciousness discern any other injury. On my exam patient did have a contusion in her posterior occipital area otherwise normal exam. Head CT was done which was negative for any acute intracranial pathology. Patient discharged back to the [facility]. 07/17/19 22:42 Past History - Past Medical History Allergies/Adverse Reactions: Allergies Allergy/AdvReac Type Severity Reaction Status Date / Time No Known Drug Allergies Allergy Verified 07/17/19 21:20 Home Medications: Ambulatory Orders Celecoxib [Celebrex] 200 mg PO BID 07/17/19 Meclizine HCl [Antivert -] 12.5 mg PO TID 07/17/19 Metoprolol Succinate 50 mg PO DAILY 07/17/19 Omeprazole Magnesium [Prilosec Otc] 40 mg PO DAILY 07/17/19 Anemia: No Asthma: No Cancer: No Cardiac Disorders: No CVA: No COPD: No CHF: No Dementia: No Diabetes: No GI Disorders: No Disorders: No HTN: Yes Hypercholesterolemia: No Liver Disease: No Seizures: No Thyroid Disease: No - Surgical History Abdominal Surgery: Yes (PT UNSURE) Appendectomy: No Cardiac Surgery: No Cholecystectomy: No Lung Surgery: No Neurologic Surgery: No Orthopedic Surgery: Yes (RIGHT HIP AND LEG SURGERY) - Immunization History Immunization Up to Date: Yes - Psycho Social/Smoking Cessation Hx Smoking Status: No Smoking History: Never smoked Have you smoked in the past 12 months: No Number of Cigarettes Smoked Daily: 0 If you are a former smoker, when did you quit?: 10 YRS Hx Alcohol Use: No Drug/Substance Use Hx: No Substance Use Type: None Hx Substance Use Treatment: No *Physical Exam - Vital Signs Last Vital Signs Temp Pulse Resp BP Pulse Ox 97.8 F 60 15 102/50 L 98 07/17/19 21:27 07/17/19 21:27 07/17/19 21:27 07/17/19 21:27 07/17/19 21:27 ED Treatment Course - RADIOLOGY Radiology Studies Ordered: Category Date Time Status HEAD CT WITHOUT CONTRAST [CT] Stat CT Scan 07/17/19 21:21 Completed Discharge - Discharge Information Problems reviewed: No Clinical Impression/Diagnosis: Scalp contusion Qualifiers: Encounter type: initial encounter Qualified Code(s): S00.03XA - Contusion of scalp, initial encounter Fall Qualifiers: Encounter type: initial encounter Qualified Code(s): W19.XXXA - Unspecified fall, initial encounter Condition: Stable - Follow up/Referral Referrals: Magdiel Nsasar MD [Staff Physician] - - Patient Discharge Instructions Additional Instructions: Tylenol or Motrin as needed for pain. Take Augmentin 1 tablet twice a day for 7 days. Return to the emergency department immediately with ANY new, persistent or worsening symptoms. Continue any medications as previously prescribed by your physician. You should follow up with your primary doctor as soon as possible regarding today's emergency department visit. . Please make sure your doctor reviews the results of your emergency evaluation. Thank you for coming to the Emergency Department today for your care. It was a pleasure to see you today. Please note that your evaluation is INCOMPLETE until you follow-up with your doctor. - Post Discharge Activity
== END 2019-07-17 22:56 | disposition home or self-care (01) ==
LOC: FER 21:18
DX: S00.03XA Contusion of scalp, initial encounter (principal); I10 Essential (primary) hypertension; W18.30XA Fall on same level, unspecified, initial encounter; Y93.9 Activity, unspecified; Y92.129 Unspecified place in nursing home as the place of occurrence of the external cause
CPT/HCPCS: 70450-TC; 99281-25

== ENCOUNTER 2019-10-02 16:11 | Emergency (ER) | payer OTHER, BC ==
[2019-10-02 16:39] VITALS: BP 175/77; PULSE 55; TEMP 97.6; BMI 23.1
--- NOTE | 2019-10-02 16:42 | PDOC ---
History of Present Illness <Andre Dubose - Last Filed: 10/02/19 18:56> <Marla Driver - Last Filed: 10/02/19 20:50> - General Chief Complaint: Injury Stated Complaint: FALL HIT HEAD Time Seen by Provider: 10/02/19 16:41 Past History - Past Medical History Anemia: No Asthma: No Cancer: No Cardiac Disorders: No CVA: No COPD: No CHF: No Dementia: No Diabetes: No GI Disorders: No Disorders: No HTN: Yes Hypercholesterolemia: No Liver Disease: No Seizures: No Thyroid Disease: No Other medical history: OSTEO ARTHRITIS. HIP FRACTURE - Surgical History Abdominal Surgery: Yes (PT UNSURE) Appendectomy: No Cardiac Surgery: No Cholecystectomy: No Lung Surgery: No Neurologic Surgery: No Orthopedic Surgery: Yes (RIGHT HIP AND LEG SURGERY) - Immunization History Immunization Up to Date: Yes - Psycho Social/Smoking Cessation Hx Smoking Status: No Smoking History: Never smoked Have you smoked in the past 12 months: No Number of Cigarettes Smoked Daily: 0 If you are a former smoker, when did you quit?: 10 YRS Information on smoking cessation initiated: No Hx Alcohol Use: No Drug/Substance Use Hx: No Substance Use Type: None Hx Substance Use Treatment: No <Andre Dubose - Last Filed: 10/02/19 18:56> <Marla Driver - Last Filed: 10/02/19 20:50> - Past Medical History Allergies/Adverse Reactions: Allergies Allergy/AdvReac Type Severity Reaction Status Date / Time No Known Drug Allergies Allergy Verified 07/17/19 21:20 Home Medications: Ambulatory Orders Acetaminophen 500 mg PO TID 10/02/19 Donepezil HCl [Aricept] 10 mg PO HS 10/02/19 Duloxetine HCl 30 mg PO BID 10/02/19 Meclizine HCl 25 mg PO TID 10/02/19 Memantine HCl [Namenda Xr] 28 mg PO DAILY 10/02/19 Metoprolol Succinate [Toprol Xl] 50 mg PO DAILY 10/02/19 Nitrofurantoin Monohyd/M-Cryst [Macrobid -] 100 mg PO BID #14 capsule 10/02/19 Omeprazole 40 mg PO DAILY 10/02/19 *Physical Exam - Vital Signs Last Vital Signs Temp Pulse Resp BP Pulse Ox 97.6 F 55 L 16 175/77 H 94 L 10/02/19 16:13 10/02/19 16:13 10/02/19 16:13 10/02/19 16:13 10/02/19 16:13 <Andre Dubose - Last Filed: 10/02/19 18:56> - Vital Signs Last Vital Signs Temp Pulse Resp BP Pulse Ox 97.6 F 55 L 16 175/77 H 94 L 10/02/19 16:13 10/02/19 16:13 10/02/19 16:13 10/02/19 16:13 10/02/19 16:13 <Marla Driver - Last Filed: 10/02/19 20:50> ED Treatment Course - LABORATORY CBC & Chemistry Diagram: 10/02/19 17:14 10/02/19 17:14 <Andre Dubose - Last Filed: 10/02/19 18:56> - LABORATORY CBC & Chemistry Diagram: 10/02/19 17:14 10/02/19 17:14 - ADDITIONAL ORDERS Additional order review: Laboratory Results 10/02/19 17:14 Sodium 137 Potassium 3.3 L Chloride 103 Carbon Dioxide 24 Anion Gap 10 BUN 18.0 Creatinine 0.8 Est GFR (CKD-EPI)AfAm 76.83 Est GFR (CKD-EPI)NonAf 66.29 Random Glucose 103 Calcium 8.9 Total Bilirubin 0.9 AST 18 ALT 18 Alkaline Phosphatase 91 Total Protein 6.2 L Albumin 3.4 10/02/19 17:14 RBC 4.25 MCV 95.0 MCHC 31.7 L RDW 14.2 MPV 9.0 Neutrophils % 80.1 Lymphocytes % 13.4 Monocytes % 5.7 Eosinophils % 0.6 Basophils % 0.2 <Marla Driver - Last Filed: 10/02/19 20:50> Medical Decision Making - Medical Decision Making 10/02/19 16:56 89F PMH HTN, OA BIBEMS from [facility] for mechanical fall x2 w/ head strike w/o LOC. Pt was ambulating with walker and legs gave out x2, was helped up by aide both times but not sent to ED after the first time because it was deemed unnecessary. Pt remembers the entire event. Denies chest pain, palpitations, n/ v. Denies poor PO intake, vomiting, diarrhea. Does state she always have vertigo which she takes meclizine for. Endorses prior right hip replacment. Denies current pain. CONSTITUTIONAL: Denies F / C HEENT: Denies headache, lightheadedness, dizziness, changes in vision / hearing RESP: Denies SOB, cough, orthopnea, DAMON CARD: Denies chest pain, palpitations GI: Denies N / V / D, abdominal pain, bloody stool, inability to tolerate PO : Endorses dysuria SKIN: Denies rashes NEURO: Denies numbness, tingling, weakness MSK: Denies neck, shoulder, back pain GEN: NAD, comfortable. AAOx3. HEENT: There is small (approx 2x2cm) right occipital scalp hematoma, no active bleeding, no other signs of trauma, CN II-XII grossly intact, EOMI, PERRL. No facial asymmetry. Normal voice. Supple neck w/ FROM, no midline TTP. CV: S1/S2, RRR, no m/r/g LUNG: CTAB, no wheezes, crackles, rales, rhonchi. GI: Soft, ndnt, +BS, no guarding, no rebound. No masses. EXTREMITIES: 1+ pitting edema LE. No obvious deformities of all extremities. FROM UE b/l. FROM LLE. Limited ROM on RLE (pt states has been like this since hip replacement). No bony TTP. BACK: No obvious deformities, no step offs, no midline TTP. There is no pelvic instability. No signs of trauma. SKIN: Warm, dry, no rashes appreciated. PSYCH: Normal mood and affect. NEURO: Moving all extremities. Symmetric Sensation. Ambulation deferred. 89F BIBEMS from [facility] for mechanical fall w/ head strike w/o LOC. Reliable historian. Small scalp hematoma, no active bleed. r/o ICH, r/o C-spine fracture, r/o shoulder/humerus fracture - CBC, CMP - UA - CT head neck - XR RShoulder 10/02/19 18:56 CT neg for acute pathology labs reviewed f/u shoulder XR f/u UA <Andre Dubose - Last Filed: 10/02/19 18:56> Discharge - Discharge Information Problems reviewed: Yes - Admission No <Andre Dubose - Last Filed: 10/02/19 18:56> <Villa,Marla J - Last Filed: 10/02/19 20:50> - Discharge Information Clinical Impression/Diagnosis: Fall Qualifiers: Encounter type: initial encounter Qualified Code(s): W19.XXXA - Unspecified fall, initial encounter UTI (urinary tract infection) Qualifiers: Urinary tract infection type: acute cystitis Hematuria presence: without hematuria Qualified Code(s): N30.00 - Acute cystitis without hematuria Condition: Stable Disposition: HOME - Additional Discharge Information Prescriptions: Nitrofurantoin Monohyd/M-Cryst [Macrobid -] 100 mg PO BID #14 capsule - Follow up/Referral Referrals: Iván Reed MD [Primary Care Provider] - - Patient Discharge Instructions Patient Printed Discharge Instructions: How to Prevent Falls Additional Instructions: Danielle is being discharged back to [facility] after her fall. Her labs were reassuring. Her CT of her head and neck were negative for bleeds or fracture. Shoulder xray revealed no fracture or dislocation Continue home medications as prescribed. Urinalysis revealed UTI ; Prescription for Nitrofurantoin will be sent to her pharmacy First dose of Nitrofurantoin given in the ER Immediately return to the Emergency Department if you experience: - numbness, tingling, weakness that is new - further falls - change in mental status - anything that concerns you - Post Discharge Activity
--- NOTE | 2019-10-02 17:20 | PDOC ---
Attending Attestation - Resident Resident Name: Andre Dubose - ED Attending Attestation I have performed the following: I have examined & evaluated the patient, The case was reviewed & discussed with the resident, I agree w/resident's findings & plan, Exceptions are as noted - HPI HPI: 10/02/19 17:26 Ms. turner is an 89 yo F with a significant PMH of HTN, who presents to the emergency department via [facility] for evaluation of TWO falls that occurred today. The patient states she lost her balance and fell. She was assisted to standing by the staff at the facility. After getting to standing, pt fell again, striking the back of her head No LOC No amnesia Pt did strike her head The patient denies any vision changes, numbness or tingling. Denies chest pain, shortness of breath, headache and dizziness. Denies fever, chills, nausea, vomit, diarrhea and constipation. PAST MEDICAL HISTORY: HTN PAST SURGICAL HISTORY: right hip and leg surgery MEDICATIONS: reviewed ALLERGIES: NKDA - Physicial Exam PE: 10/02/19 17:19 General: Well-nourished well-developed individual, no acute distress HEENT: Throat: Normal, tonsils normal, no erythema or exudate Neck: Supple, no meningeal signs, no lymphadenopathy Eyes::Pupils equal reactive and round, extraocular motion intact Chest: Nontender to palpation Cardiac: S1-S2 normal, regular rate and rhythm, no murmurs rubs or gallops Respiratory: Lungs clear to auscultation bilateral Abdomen: Soft, nondistended, normal bowel sounds, nontender to palpation diffusely Extremities: Warm, dry, no cyanosis, clubbing, or edema Skin: Neuro: Alert and oriented x3, nonfocal exam, grossly intact, normal gait Psych: Normal mood and affect - Medical Decision Making 10/02/19 17:37 This is a 89-year-old female [facility] Patient said she slipped lost her balance and fell hitting her posterior occipital area. Patient denies any loss of consciousness discern any other injury. Head CT was done which was negative for any acute intracranial pathology. 10/03/19 13:45 10/03/19 13:46 Laboratory Tests 10/02/19 10/02/19 17:14 17:14 WBC 10.3 Hgb 12.8 Hct 40.4 Plt Count 255 BUN 18.0 Creatinine 0.8 UA pending Signed out to Dr. Driver
[2019-10-02 17:30] LABS: BASO % 0.2 % (0-2.0); EOS % 0.6 % (0-4.5); HEMATOCRIT 40.4 % (32.4-45.2); HEMOGLOBIN 12.8 GM/dl (10.7-15.3); LYMPH % 13.4 % (8-40); MCH 30.1 pg (25.7-33.7); MCHC 31.7 g/dl (32.0-36.0); MONO % 5.7 % (3.8-10.2); NEUT % 80.1 % (42.8-82.8); PLATELET COUNT 255 K/MM3 (134-434); RBC 4.25 M/mm3 (3.60-5.2); RDW 14.2 % (11.6-15.6); WHITE BLOOD COUNT 10.3 K/mm3 (4.0-10.8)
[2019-10-02 17:46] LABS: ALBUMIN 3.4 g/dl (3.4-5.0); BILIRUBIN,TOTAL 0.9 mg/dl (0.2-1); CALCIUM 8.9 mg/dl (8.5-10); CREATININE 0.8 mg/dl (0.55-1.3); POTASSIUM 3.3 mmol/L (3.5-5.1); TOT PROT 6.2 g/dl (6.4-8.2)
--- NOTE | 2019-10-02 20:29 | PDOC ---
*Physical Exam - Vital Signs Last Vital Signs Temp Pulse Resp BP Pulse Ox 97.6 F 55 L 16 175/77 H 94 L 10/02/19 16:13 10/02/19 16:13 10/02/19 16:13 10/02/19 16:13 10/02/19 16:13 ED Treatment Course - LABORATORY CBC & Chemistry Diagram: 10/02/19 17:14 10/02/19 17:14 - ADDITIONAL ORDERS Additional order review: Laboratory Results 10/02/19 10/02/19 20:20 17:14 Sodium 137 Potassium 3.3 L Chloride 103 Carbon Dioxide 24 Anion Gap 10 BUN 18.0 Creatinine 0.8 Est GFR (CKD-EPI)AfAm 76.83 Est GFR (CKD-EPI)NonAf 66.29 Random Glucose 103 Calcium 8.9 Total Bilirubin 0.9 AST 18 ALT 18 Alkaline Phosphatase 91 Total Protein 6.2 L Albumin 3.4 Urine Color Yellow Urine Appearance Cloudy Urine pH 7.0 Urine Protein 1+ H Urine Glucose (UA) Negative Urine Ketones Trace Urine Blood 2+ H Urine Nitrite Negative Urine Bilirubin Negative Urine Urobilinogen 2.0 H Ur Leukocyte Esterase 1+ 10/02/19 17:14 RBC 4.25 MCV 95.0 MCHC 31.7 L RDW 14.2 MPV 9.0 Neutrophils % 80.1 Lymphocytes % 13.4 Monocytes % 5.7 Eosinophils % 0.6 Basophils % 0.2 Medical Decision Making - Medical Decision Making 10/02/19 20:54 Care of this patient received from Dr. Yip. Patient evaluated after a fall at the [facility]. Head CT/cervical spine CT/right shoulder x-ray all negative for acute pathology/injury. Urinalysis suggestive of UTI with 1+ LE and microscopic exam positive for RBC/ WBC and bacteria Urine culture and sensitivity pending Patient has history of UTI evaluated here in December,. At that time, she received nitrofurantoin for treatment. Patient given first dose of nitrofurantoin 100 mg now and 7-day course sent to her pharmacy. Discharge - Discharge Information Problems reviewed: Yes Clinical Impression/Diagnosis: Fall Qualifiers: Encounter type: initial encounter Qualified Code(s): W19.XXXA - Unspecified fall, initial encounter UTI (urinary tract infection) Qualifiers: Urinary tract infection type: acute cystitis Hematuria presence: without hematuria Qualified Code(s): N30.00 - Acute cystitis without hematuria Condition: Stable Disposition: HOME - Additional Discharge Information Prescriptions: Nitrofurantoin Monohyd/M-Cryst [Macrobid -] 100 mg PO BID #14 capsule Nitrofurantoin Monohyd/M-Cryst [Macrobid -] 100 mg PO BID #14 capsule - Follow up/Referral Referrals: Iván Reed MD [Primary Care Provider] - - Patient Discharge Instructions Patient Printed Discharge Instructions: How to Prevent Falls Additional Instructions: Danielle is being discharged back to [facility] after her fall. Her labs were reassuring. Her CT of her head and neck were negative for bleeds or fracture. Shoulder xray revealed no fracture or dislocation Continue home medications as prescribed. Urinalysis revealed UTI ; Prescription for Nitrofurantoin will be sent to her pharmacy([email or web address]) First dose of Nitrofurantoin given in the ER Immediately return to the Emergency Department if you experience: - numbness, tingling, weakness that is new - further falls - change in mental status - anything that concerns you - Post Discharge Activity
[2019-10-02] MEDS ORDERED: NITROFURANTOIN MACROCRYSTAL 50 MG CAPSULE (FP) ONE (20:36)
[2019-10-02] MEDS ORDERED: NITROFURANTOIN MACROCRYSTAL 50 MG CAPSULE (FP) PO SCH (20:45)
== END 2019-10-02 21:14 | disposition home or self-care (01) ==
LOC: FER 16:11
DX: N30.00 Acute cystitis without hematuria (principal); W01.0XXA Fall on same level from slipping, tripping and stumbling without subsequent striking against object, initial encounter; Y93.89 Activity, other specified; Y92.89 Other specified places as the place of occurrence of the external cause
CPT/HCPCS: 36415; 70450-TC; 72125-TC; 73030-TC-RT-FY; 80053; 81003; 81015; 85025; 87086; 99282-25

== ENCOUNTER 2019-10-08 13:34 | Inpatient (IN) | payer OTHER, BC ==
--- NOTE | 2019-10-08 14:19 | PDOC ---
Attending Attestation - Resident Resident Name: Kyle Haq - HPI HPI: 10/08/19 15:31 Pt presents to the ED after sent in from [place] for generalized weakness after recurrent UTI. Patient is also complaining of persistent dyuria despite completing a course of macrobid. Denies fever, nausea or vomiting or abdominal pain. Denies chest pain or shortness of breath. - Physicial Exam PE: 10/08/19 15:35 10/08/19 15:37 10/08/19 15:37 Gen: alert, NAD CV: rrr no murmurs Pulm: cta b/l Abdomen: soft, non tender, non distended without guarding or rebound. - Medical Decision Making 10/08/19 15:37 Pt presents to the ED complaining of generalized malaise and weakness after recent treatment for UTI. Patient still has persistent symptoms. Pyleonephritis vs persistent cystitis vs electrolyte disturbance. Will check labs and UA, reassess.
--- NOTE | 2019-10-08 14:27 | PDOC ---
History of Present Illness - General Chief Complaint: Altered Mental Status Stated Complaint: Altered Mental Status Time Seen by Provider: 10/08/19 14:02 - History of Present Illness Initial Comments: History limited 2/2 dementia. 89 y/o female with PMH significant for HTN, OA, dementia, sent in from [facility] today for weakness and dehydration. Per intermediate, she had a couple falls this month and has had increasing difficulty walking, requiring multiple aides. Pt was previously very independent 1 year ago. She was seen at [place] last week and CT head/c-spine were negative. No other falls since then. At bedside, pt reports mild burning on urination otherwise has no other concerns. Recently treated for UTI at on macrobid. No chest pain/shortness of breath. No headache. No cough/fever. No abdominal pain. No nausea/vomiting. No diarrhea. No blood in stool. Past History - Past Medical History Allergies/Adverse Reactions: Allergies Allergy/AdvReac Type Severity Reaction Status Date / Time No Known Drug Allergies Allergy Verified 07/17/19 21:20 Home Medications: Ambulatory Orders Acetaminophen 500 mg PO TID 10/02/19 Donepezil HCl [Aricept] 10 mg PO HS 10/02/19 Duloxetine HCl 30 mg PO BID 10/02/19 Meclizine HCl 25 mg PO TID 10/02/19 Metoprolol Succinate [Toprol Xl] 50 mg PO DAILY 10/02/19 Nitrofurantoin Monohyd/M-Cryst [Macrobid -] 100 mg PO BID #14 capsule 10/02/19 Omeprazole 40 mg PO DAILY 10/02/19 Memantine HCl [Namenda Xr] 28 mg PO DAILY 10/08/19 Anemia: No Asthma: No Cancer: No Cardiac Disorders: No CVA: No COPD: No CHF: No Dementia: No Diabetes: No GI Disorders: No Disorders: No HTN: Yes Hypercholesterolemia: No Liver Disease: No Seizures: No Thyroid Disease: No Other medical history: OA - Surgical History Abdominal Surgery: Yes (PT UNSURE) Appendectomy: No Cardiac Surgery: No Cholecystectomy: No Lung Surgery: No Neurologic Surgery: No Orthopedic Surgery: Yes (RIGHT HIP AND LEG SURGERY) - Immunization History Immunization Up to Date: Yes - Psycho Social/Smoking Cessation Hx Smoking Status: No Smoking History: Former smoker Have you smoked in the past 12 months: No Number of Cigarettes Smoked Daily: 0 If you are a former smoker, when did you quit?: 30yrs ago Information on smoking cessation initiated: No Hx Alcohol Use: No Drug/Substance Use Hx: No Substance Use Type: None Hx Substance Use Treatment: No Review of Systems - Review of Systems Comments:: GENERAL/CONSTITUTIONAL: No fever or chills. Reports generalized weakness. HEAD, EYES, EARS, NOSE AND THROAT: No change in vision. No change in hearing. No sore throat._ CARDIOVASCULAR: No chest pain or shortness of breath_ RESPIRATORY: Denies cough, hemoptysis_ GASTROINTESTINAL: No nausea, vomiting, diarrhea or constipation._ GENITOURINARY: Reports dysuria. No frequency, or change in urination._ MUSCULOSKELETAL: No joint or muscle swelling or pain. No neck or back pain._ SKIN: No rash_ NEUROLOGIC: No headache, vertigo, loss of consciousness. Reports gradual difficulty with ambulation over past month. ENDOCRINE: No increased thirst. HEMATOLOGIC/LYMPHATIC: No anemia, easy bleeding, or history of blood clots._ ALLERGIC/IMMUNOLOGIC: No hives or skin allergy._ *Physical Exam - Vital Signs Last Vital Signs Temp Pulse Resp BP Pulse Ox 97.5 F L 57 L 14 169/81 96 10/08/19 13:48 10/08/19 13:48 10/08/19 13:48 10/08/19 13:48 10/08/19 13:48 - Physical Exam GENERAL: Awake, alert, in no acute distress_ HEAD: No signs of trauma, normoc ephalic, atraumatic _ EYES: PERRLA, EOMI, sclera anicteric, conjunctiva clear_ ENT: Hearing grossly normal, nares patent, oropharynx clear without exudates. No uvular deviation. Moist mucosa_ NECK: Normal ROM, supple, no lymphadenopathy, JVD, or masses_ LUNGS: No distress, speaks in full sentences, clear to auscultation bilaterally _ HEART: Regular rate and rhythm, normal S1 and S2, no murmurs appreciated, peripheral pulses normal and equal bilaterally._ ABDOMEN: Soft, nontender, normoactive bowel sounds. No guarding, no rebound. No masses_ EXTREMITIES: Normal inspection, Normal range of motion, no edema. No clubbing or cyanosis_ NEUROLOGICAL: Cranial nerves II through XII grossly intact. Normal speech. Unable to assess gait. 5/5 strength and sensation in lower extremities. Cerebellar testing intact. SKIN: Warm, Dry, normal turgor, no rashes or lesions noted_ ED Treatment Course - LABORATORY CBC & Chemistry Diagram: 10/08/19 15:20 10/08/19 15:20 Medical Decision Making - Medical Decision Making 10/08/19 14:57 89 y/o female with PMH of HTN OA dementia presenting with weakness and dehydration. -cbc, cmp -ua, ucx -ekg, cxr, trop 10/08/19 16:00 EKG shows sinus bradycardia, no ST elevation/depression, no axis deviation, QTc 472. CXR shows no acute intra thoracic pathology. 10/08/19 16:56 -rocephin 1g 10/08/19 18:11 Labs reviewed. Laboratory Last Values WBC 9.4 K/mm3 (4.0-10.0) 10/08/19 15:20 RBC 4.45 M/mm3 (3.60-5.2) 10/08/19 15:20 Hgb 13.6 GM/dL (10.7-15.3) 10/08/19 15:20 Hct 41.5 % (32.4-45.2) 10/08/19 15:20 MCV 93.2 fl (80-96) 10/08/19 15:20 MCH 30.5 pg (25.7-33.7) 10/08/19 15:20 MCHC 32.7 g/dl (32.0-36.0) 10/08/19 15:20 RDW 14.4 % (11.6-15.6) 10/08/19 15:20 Plt Count 223 K/MM3 (134-434) 10/08/19 15:20 MPV 9.7 fl (7.5-11.1) 10/08/19 15:20 Absolute Neuts (auto) 6.6 K/mm3 (1.5-8.0) 10/08/19 15:20 Neutrophils % 69.9 % (42.8-82.8) 10/08/19 15:20 Lymphocytes % 18.6 % (8-40) 10/08/19 15:20 Monocytes % 9.3 % (3.8-10.2) 10/08/19 15:20 Eosinophils % 1.7 % (0-4.5) D 10/08/19 15:20 Basophils % 0.5 % (0-2.0) 10/08/19 15:20 Nucleated RBC % 0 % (0-0) 10/08/19 15:20 Sodium 138 mmol/L (136-145) 10/08/19 15:20 Potassium 3.8 mmol/L (3.5-5.1) 10/08/19 15:20 Chloride 103 mmol/L (98-107) 10/08/19 15:20 Carbon Dioxide 27 mmol/L (21-32) 10/08/19 15:20 Anion Gap 8 MMOL/L (8-16) 10/08/19 15:20 BUN 12.9 mg/dL (7-18) 10/08/19 15:20 Creatinine 0.7 mg/dL (0.55-1.3) 10/08/19 15:20 Est GFR (CKD-EPI)AfAm 90.29 10/08/19 15:20 Est GFR (CKD-EPI)NonAf 77.90 10/08/19 15:20 Random Glucose 90 mg/dL (74-106) 10/08/19 15:20 Calcium 9.1 mg/dL (8.5-10.1) 10/08/19 15:20 Total Bilirubin 1.6 mg/dL (0.2-1) H 10/08/19 15:20 AST 27 U/L (15-37) 10/08/19 15:20 ALT 18 U/L (13-61) 10/08/19 15:20 Alkaline Phosphatase 117 U/L (45-117) 10/08/19 15:20 Creatine Kinase 78 U/L (26-192) 10/08/19 15:20 Troponin I < 0.02 ng/ml (0.00-0.05) 10/08/19 15:20 Total Protein 6.3 g/dl (6.4-8.2) L 10/08/19 15:20 Albumin 3.0 g/dl (3.4-5.0) L 10/08/19 15:20 TSH 2.55 uIU/ml (0.358-3.74) 10/08/19 15:20 Urine Color Dk yellow 10/08/19 15:20 Urine Appearance Turbid 10/08/19 15:20 Urine pH 6.5 (5.0-8.0) 10/08/19 15:20 Ur Specific [place] 1.014 (1.010-1.035) 10/08/19 15:20 Urine Protein 1+ (NEGATIVE) H 10/08/19 15:20 Urine Glucose (UA) Negative (NEGATIVE) 10/08/19 15:20 Urine Ketones 1+ (NEGATIVE) H 10/08/19 15:20 Urine Blood 2+ (NEGATIVE) H 10/08/19 15:20 Urine Nitrite Negative (NEGATIVE) 10/08/19 15:20 Urine Bilirubin 1+ (NEGATIVE) H 10/08/19 15:20 Urine Urobilinogen 2.0 mg/dL (0.2-1.0) H 10/08/19 15:20 Ur Leukocyte Esterase 3+ (NEGATIVE) H 10/08/19 15:20 Urine WBC (Auto) 1185 /hpf (0-5) 10/08/19 15:20 Urine RBC (Auto) 15.3 /hpf (0-4) 10/08/19 15:20 Urine Casts (Auto) 8 /lpf (0-8) 10/08/19 15:20 U Epithel Cells (Auto) 4.0 /HPF (0-5/HPF) 10/08/19 15:20 Urine Bacteria (Auto) 145.9 /hpf (NEGATIVE) 10/08/19 15:20 Urine Yeast (Auto) None seen (NEGATIVE) 10/08/19 15:20 D/w Dr. Delong who accepts the patient for admission. 10/08/19 20:[address] Phoenix who requests that the patient be transferred to his service. Discharge - Discharge Information Problems reviewed: Yes Clinical Impression/Diagnosis: UTI (urinary tract infection) Qualifiers: Urinary tract infection type: acute cystitis Hematuria presence: without hematuria Qualified Code(s): N30.00 - Acute cystitis without hematuria Condition: Stable - Admission Yes - Follow up/Referral - Patient Discharge Instructions - Post Discharge Activity
[2019-10-08] MEDS ORDERED: SODIUM CHLORIDE 0.9% 500 ML INFUS.BAG IV ONE (15:00)
[2019-10-08 16:21] LABS: BASO % 0.5 % (0-2.0); EOS % 1.7 % (0-4.5); HEMATOCRIT 41.5 % (32.4-45.2); HEMOGLOBIN 13.6 GM/dL (10.7-15.3); LYMPH % 18.6 % (8-40); MCH 30.5 pg (25.7-33.7); MCHC 32.7 g/dl (32.0-36.0); MEAN CELL VOLUME 93.2 fl (80-96); MEAN PLT VOLUME 9.7 fl (7.5-11.1); MONO % 9.3 % (3.8-10.2); NEUT % 69.9 % (42.8-82.8); PLATELET COUNT 223 K/MM3 (134-434); RBC 4.45 M/mm3 (3.60-5.2); RDW 14.4 % (11.6-15.6); WHITE BLOOD COUNT 9.4 K/mm3 (4.0-10.0)
[2019-10-08 16:26] LABS: HYALINE CASTS 8 /lpf (0-8); PH,URINE 6.5 (5.0-8.0); URINE APPEARANCE TURBID; URINE BACTERIA 145.9 /hpf (NEGATIVE); URINE BILIRUBIN 1+ (NEGATIVE); URINE COLOR DK YELLOW; URINE GLUCOSE (UA) NEGATIVE (NEGATIVE); URINE KETONE 1+ (NEGATIVE); URINE LEUK ESTERASE 3+ (NEGATIVE); URINE NITRITE NEGATIVE (NEGATIVE); URINE PROTEIN 1+ (NEGATIVE); URINE WBC 1185 /hpf (0-5)
[2019-10-08] MEDS ORDERED: CEFTRIAXONE 1 GM in DEXTROSE 5%-WATER - 100 ML IVPB ONE (16:56)
[2019-10-08 17:00] LABS: BILIRUBIN,TOTAL 1.6 mg/dL (0.2-1); BLOOD UREA NITROGEN 12.9 mg/dL (7-18); CALCIUM 9.1 mg/dL (8.5-10.1); CREATININE 0.7 mg/dL (0.55-1.3); POTASSIUM 3.8 mmol/L (3.5-5.1); TOT PROT 6.3 g/dl (6.4-8.2)
[2019-10-08 17:03] LABS: URINE RBC 15.3 /hpf (0-4); YEAST NONE SEEN (NEGATIVE)
[2019-10-08] MEDS ORDERED: CEFTRIAXONE 1 GM/50 ML BAG ONE (17:15)
--- NOTE | 2019-10-08 19:44 | HP ---
CHIEF COMPLAINT: weakness PCP: HISTORY OF PRESENT ILLNESS: 89 year old female with a past medical history significant for HTN, osteoarthritis and dementia whowas sent in from [facility] today for weakness and dehydration. Per correction, she had a couple falls this past month and has had increasing difficulty walking. Patient was previously very independent 1 year ago. She was seen at [facility] last week. CT head/ c-spine were negative. No other falls since then. Patient reported mild burning on urination. She was recently treated for UTI at [facility] and was taking macrobid. She denied chest pain/shortness of breath, headache, cough/ fever or abdominal pain. No nausea/vomiting. No diarrhea. No blood in stool. Patient is awake and oriented to self and place. ER course/workup notable for: (1)Urinalysis with 3+ leukoesterase, 2+ blood and negative nitrite. She received a dose of IV Ceftriaaxone 1 gm. (2) EKG- sinus bradycardia heart rate 50's (3) CXR- no acute findings (4) normal TSH, CBC, electrolytes and renal studies Recent Travel: no PAST MEDICAL HISTORY: hypertension osteoarthritis dementia PAST SURGICAL HISTORY: right hip and leg surgery Social History: Smoking:no Alcohol:no Drugs: no Allergies No Known Drug Allergies Allergy (Verified 07/17/19 21:20) HOME MEDICATIONS: Home Medications Medication Instructions Recorded Acetaminophen 500 mg PO TID 10/02/19 Donepezil HCl [Aricept] 10 mg PO HS 10/02/19 Duloxetine HCl 30 mg PO BID 10/02/19 Meclizine HCl 25 mg PO TID 10/02/19 Metoprolol Succinate [Toprol Xl] 50 mg PO DAILY 10/02/19 Nitrofurantoin Monohyd/M-Cryst 100 mg PO BID #14 capsule 10/02/19 [Macrobid -] Omeprazole 40 mg PO DAILY 10/02/19 Memantine HCl [Namenda Xr] 28 mg PO DAILY 10/08/19 REVIEW OF SYSTEMS CONSTITUTIONAL: Absent: fever, chills, diaphoresis, generalized weakness, malaise, loss of appetite, weight change HEENT: Absent: rhinorrhea, nasal congestion, throat pain, throat swelling, difficulty swallowing, mouth swelling, ear pain, eye pain, visual changes CARDIOVASCULAR: Absent: chest pain, syncope, palpitations, irregular heart rate, lightheadedness , peripheral edema RESPIRATORY: Absent: cough, shortness of breath, dyspnea with exertion, orthopnea, wheezing, stridor, hemoptysis GASTROINTESTINAL: Absent: abdominal pain, abdominal distension, nausea, vomiting, diarrhea, constipation, melena, hematochezia GENITOURINARY: Absent: dysuria, frequency, urgency, hesitancy, hematuria, flank pain, genital pain MUSCULOSKELETAL: Absent: myalgia, arthralgia, joint swelling, back pain, neck pain SKIN: Absent: rash, itching, pallor HEMATOLOGIC/IMMUNOLOGIC: Absent: easy bleeding, easy bruising, lymphadenopathy, frequent infections ENDOCRINE: Absent: unexplained weight gain, unexplained weight loss, heat intolerance, cold intolerance NEUROLOGIC: Absent: headache, focal weakness or paresthesias, dizziness, unsteady gait, seizure, mental status changes, bladder or bowel incontinence PSYCHIATRIC: Absent: anxiety, depression, suicidal or homicidal ideation, hallucinations. PHYSICAL EXAMINATION Vital Signs - 24 hr 10/08/19 10/08/19 13:48 19:11 Temperature 97.5 F L 97.5 F L Pulse Rate 57 L Pulse Rate [ 59 L Right Radial] Respiratory 14 18 Rate Blood Pressure 169/81 Blood Pressure 183/60 H [Right Arm] O2 Sat by Pulse 96 94 L Oximetry (%) GENERAL: awake alert and oriented to self and place no acute distress HEAD: normal EYES: pupils equal round and reactive to light EARS, NOSE, THROAT: ears normal nares patent LUNGS: breath sounds equal clear to auscultation bilaterally no wheezing no crackles no use of accessory muscles HEART: regular rate and rhythm normal S1 and S2 without murmur ABDOMEN: soft nontender not distended MUSCULOSKELETAL: limited range of motion to lower extremities no CVA tenderness UPPER EXTREMITIES: 2+ pulses warm well-perfused no cyanosis LOWER EXTREMITIES: 2+ pulses warm well-perfused NEUROLOGICAL: normal speech no facial grimace no facial droop moving upper and lower extremities PSYCHIATRIC: cooperative good eye contact appropriate mood and affect SKIN: warm dry no rashes or lesions noted nail beds and lips pink Laboratory Results - last 24 hr 10/08/19 10/08/19 10/08/19 15:20 15:20 15:20 WBC 9.4 RBC 4.45 Hgb 13.6 Hct 41.5 MCV 93.2 MCH 30.5 MCHC 32.7 RDW 14.4 Plt Count 223 MPV 9.7 Absolute Neuts (auto) 6.6 Neutrophils % 69.9 Lymphocytes % 18.6 Monocytes % 9.3 Eosinophils % 1.7 D Basophils % 0.5 Nucleated RBC % 0 Sodium 138 Potassium 3.8 Chloride 103 Carbon Dioxide 27 Anion Gap 8 BUN 12.9 Creatinine 0.7 Est GFR (CKD-EPI)AfAm 90.29 Est GFR (CKD-EPI)NonAf 77.90 Random Glucose 90 Calcium 9.1 Total Bilirubin 1.6 H AST 27 ALT 18 Alkaline Phosphatase 117 Creatine Kinase 78 Troponin I < 0.02 Total Protein 6.3 L Albumin 3.0 L TSH 2.55 Urine Color Urine Appearance Urine pH Ur Specific [place] Urine Protein Urine Glucose (UA) Urine Ketones Urine Blood Urine Nitrite Urine Bilirubin Urine Urobilinogen Ur Leukocyte Esterase Urine WBC (Auto) Urine RBC (Auto) Urine Casts (Auto) U Epithel Cells (Auto) Urine Bacteria (Auto) Urine Yeast (Auto) 10/08/19 15:20 WBC RBC Hgb Hct MCV MCH MCHC RDW Plt Count MPV Absolute Neuts (auto) Neutrophils % Lymphocytes % Monocytes % Eosinophils % Basophils % Nucleated RBC % Sodium Potassium Chloride Carbon Dioxide Anion Gap BUN Creatinine Est GFR (CKD-EPI)AfAm Est GFR (CKD-EPI)NonAf Random Glucose Calcium Total Bilirubin AST ALT Alkaline Phosphatase Creatine Kinase Troponin I Total Protein Albumin TSH Urine Color Dk yellow Urine Appearance Turbid Urine pH 6.5 Ur Specific [place] 1.014 Urine Protein 1+ H Urine Glucose (UA) Negative Urine Ketones 1+ H Urine Blood 2+ H Urine Nitrite Negative Urine Bilirubin 1+ H Urine Urobilinogen 2.0 H Ur Leukocyte Esterase 3+ H Urine WBC (Auto) 1185 Urine RBC (Auto) 15.3 Urine Casts (Auto) 8 U Epithel Cells (Auto) 4.0 Urine Bacteria (Auto) 145.9 Urine Yeast (Auto) None seen ASSESSMENT/PLAN: Mrs. Gaytan is an 89 year old female with a past medical history significant for hypertension, osteoarthritis and dementia who presented from [facility] for weakness to lower extremities and dehydration. She was recently treated for UTI at [facility] and was taking macrobid. She was found to have an abnormal urinalysis. She is being admitted to the Medicine Service for further medical management. #1 UTI(Symptomatic) Currently afebrile, WBC normal, UA w/ 3+ leukoesterase, 2+ blood, negative nitrite Continue with IV Ceftaixone 1gm daily UA culture pending Check blood cultures Check renal US Consider ID evaluation when cultures are back #2 Hypertension Uncontrolled Continue with metoprolol succinate 50mg daily with blood pressure and heart rate parameters #3 Dementia Continue with aricept and namenda #4 Lower Extremity Weakness Hx of falls this past month and has had increasing difficulty walking,one year ago was independent, may be secondary to UTI Physical therapy consulted DVT Prophylaxsis lovenox 40mg daily FEN IVF NS @75cc/hr monitor electrolytes closely low sodium diet Visit type - Emergency Visit Emergency Visit: Yes ED Registration Date: 10/08/19 Care time: The patient presented to the Emergency Department on the above date and was hospitalized for further evaluation of their emergent condition. - New Patient This patient is new to me today: Yes Date on this admission: 10/08/19 - Critical Care Critical Care patient: No
[2019-10-08] MEDS ORDERED: SODIUM CHLORIDE 1,000 ML IV SCH (19:45)
[2019-10-08] MEDS ORDERED: ENOXAPARIN NA (PORCINE) 30 MG/0.3 ML DISP.SYRIN SQ ONE (20:19)
[2019-10-08] MEDS ORDERED: ENOXAPARIN NA (PORCINE) 40 MG/0.4 ML DISP.SYRIN SQ ONE (21:47)
[2019-10-08] MEDS: D5-1/2NS+20 MEQ KCL - 20 MEQ/1,000 ML INFUS.BAG IV SCH (21:53)
[2019-10-08] MEDS: ENOXAPARIN NA (PORCINE) 40 MG/0.4 ML DISP.SYRIN SQ SCH (21:53)
[2019-10-08] MEDS ORDERED: MECLIZINE HCL 25 MG TABLET (FP) PO SCH (22:00)
[2019-10-08] MEDS ORDERED: DONEPEZIL HCL 5 MG TABLET (FP) ONE (22:07)
[2019-10-08] MEDS ORDERED: DULoxetine HCL 30 MG CAPSULE.DR PO ONE (22:07)
[2019-10-08] MEDS: DULoxetine HCL 30 MG CAPSULE.DR PO SCH (22:21)
[2019-10-08] MEDS: DONEPEZIL HCL 10 MG TABLET (FP) PO SCH (22:21)
[2019-10-09] MEDS: D5-1/2NS+20 MEQ KCL - 20 MEQ/1,000 ML INFUS.BAG IV SCH ×2 (04:25→18:38)
[2019-10-09 09:12] LABS: BASO % 0.6 % (0-2.0); EOS % 4.1 % (0-4.5); HEMOGLOBIN 12.9 GM/dL (10.7-15.3); MCH 30.7 pg (25.7-33.7); MCHC 33.1 g/dl (32.0-36.0); MEAN CELL VOLUME 92.7 fl (80-96); MEAN PLT VOLUME 9.2 fl (7.5-11.1); MONO % 11.1 % (3.8-10.2); NEUT % 65.2 % (42.8-82.8); PLATELET COUNT 197 K/MM3 (134-434); RBC 4.21 M/mm3 (3.60-5.2); RDW 14.1 % (11.6-15.6)
[2019-10-09 09:56] LABS: ALBUMIN 2.7 g/dl (3.4-5.0); BILIRUBIN,TOTAL 1.4 mg/dL (0.2-1); BLOOD UREA NITROGEN 11.6 mg/dL (7-18); CALCIUM 8.5 mg/dL (8.5-10.1); CREATININE 0.6 mg/dL (0.55-1.3); TOT PROT 5.4 g/dl (6.4-8.2)
[2019-10-09] MEDS ORDERED: cefTRIAXone SODIUM 1 GM VIAL ONE (11:12)
[2019-10-09] MEDS ORDERED: PT OWN MED DRAWER 7, Y5N ONE ×2 (11:12→13:47)
[2019-10-09] MEDS ORDERED: DEXTROSE 5%-WATER - 50 ML IVPB ONE (11:13)
[2019-10-09] MEDS: CEFTRIAXONE 1 GM in DEXTROSE 5%-WATER - 50 ML IVPB SCH (11:17)
[2019-10-09] MEDS: PANTOPRAZOLE 40 MG TABLET PO SCH (11:17)
[2019-10-09] MEDS: MEMANTINE HCL 10 MG TABLET (FP) PO SCH ×2 (11:17→23:56)
[2019-10-09] MEDS: DULoxetine HCL 30 MG CAPSULE.DR PO SCH (11:18)
[2019-10-09] MEDS: ENOXAPARIN NA (PORCINE) 40 MG/0.4 ML DISP.SYRIN SQ SCH (11:18)
--- NOTE | 2019-10-09 11:32 | PN ---
Progress Note, Physician Chief Complaint: Patient seen and examined at the bedside, acute generalized muscle weakness, acute fatigue, depressed, no labored breathing, does not appear to be in any acute distress. History of Present Illness: This 89 yr old w/f with hx of hypertension, depression, dementia, degenerative joint disease of multiple sites and recurrent UTI admitted via ER with an acute UTI. - Current Medication List Current Medications: Active Medications Donepezil HCl (Aricept -) 10 mg PO HS [facility] Last Admin: 10/08/19 22:21 Dose: 10 mg Duloxetine HCl (Cymbalta -) 30 mg PO BID [facility] Last Admin: 10/09/19 11:18 Dose: 30 mg Enoxaparin Sodium (Lovenox -) 40 mg SQ DAILY [facility] Last Admin: 10/09/19 11:18 Dose: 40 mg Ceftriaxone Sodium 1 gm/ (Dextrose) 50 mls @ 100 mls/hr IVPB DAILY [facility] Last Admin: 10/09/19 11:17 Dose: 100 mls/hr Potassium Chloride/Dextrose/Sod Cl (D5-1/2ns+20 Meq Kcl -) 20 meq in 1,000 mls @ 50 mls/hr IV ASDIR [facility] Last Admin: 10/09/19 04:25 Dose: 50 mls/hr Memantine (Namenda -) 10 mg PO BID [facility] Last Admin: 10/09/19 11:17 Dose: 10 mg Metoprolol Succinate (Toprol Xl -) 50 mg PO DAILY [facility] Pantoprazole Sodium (Protonix -) 40 mg PO DAILY [facility] Last Admin: 10/09/19 11:17 Dose: 40 mg - Objective Vital Signs: Vital Signs Temperature 98 F 10/09/19 09:18 Pulse Rate 64 10/09/19 09:18 Respiratory Rate 18 10/09/19 09:18 Blood Pressure 149/70 10/09/19 09:18 O2 Sat by Pulse Oximetry (%) 94 L 10/09/19 06:20 Constitutional: Yes: Well Nourished, No Distress, Calm Eyes: Yes: Conjunctiva Clear, EOM Intact HENT: Yes: Atraumatic, Normocephalic Neck: Yes: Supple, Trachea Midline Cardiovascular: Yes: Regular Rate and Rhythm Respiratory: Yes: Regular, CTA Bilaterally Gastrointestinal: Yes: Normal Bowel Sounds, Soft ...Rectal Exam: Yes: Deferred Genitourinary: Yes: WNL Breast(s): Yes: WNL Musculoskeletal: Yes: Muscle Weakness Edema: No Peripheral Pulses WNL: Yes Peripheral Pulses: Left Radial: 2+, Right Radial: 2+, Left Doralis Pedis: 2+, Right Dorsalis Pedis: 2+, Left Femoral: 2+, Right Femoral: 2+ Integumentary: Yes: WNL Neurological: Yes: Alert, Unsteady Gait, Weakness ...Motor Strength: LUE (generalized muscle weakness) Psychiatric: Yes: Alert Labs: CBC, BMP 10/09/19 07:45 10/09/19 07:45 - ....Imaging Other: Report Reviewed (Lab data reviewed) Problem List - Problems (1) Hypokalemia Code(s): E87.6 - HYPOKALEMIA (2) Muscle weakness (generalized) Code(s): M62.81 - MUSCLE WEAKNESS (GENERALIZED) (3) Fatigue Code(s): R53.83 - OTHER FATIGUE (4) HTN (hypertension) Code(s): I10 - ESSENTIAL (PRIMARY) HYPERTENSION (5) Depression Code(s): F32.9 - MAJOR DEPRESSIVE DISORDER, SINGLE EPISODE, UNSPECIFIED (6) UTI (urinary tract infection) Code(s): N39.0 - URINARY TRACT INFECTION, SITE NOT SPECIFIED Qualifiers: Urinary tract infection type: acute cystitis Hematuria presence: without hematuria Qualified Code(s): N30.00 - Acute cystitis without hematuria Assessment/Plan Assessment/plan: acute UTI, acute generalized muscle weakness, acute fatigue, acute volume depletion, acute hypokalemia; IV fluids, IV potassium chloride, IV Ceftriaxone, Lovenox SQ, DVT prophylaxis, physical therapy, out of bed in chair as tolerated, SCDS.
[2019-10-09] MEDS ORDERED: DULoxetine HCL 30 MG CAPSULE.DR PO ONE (12:00)
--- NOTE | 2019-10-09 12:04 | EKG ---
Test Reason : Blood Pressure : / mmHG Vent. Rate : 053 BPM Atrial Rate : 053 BPM P-R Int : 164 ms QRS Dur : 072 ms QT Int : 504 ms P-R-T Axes : 041 -04 028 degrees QTc Int : 472 ms SINUS BRADYCARDIA OTHERWISE NORMAL ECG Confirmed by MD AVTAR, ROCKY ([id number]) on 10/09/2019 12:04:36 PM Referred By: Confirmed By:ROCKY NOVA MD
[2019-10-09] MEDS: KCL 10 MEQ IVPB 10 MEQ/100 ML INFUS.BAG IVPB SCH ×3 (12:37→16:44)
--- NOTE | 2019-10-09 13:49 | PN ---
Progress Note (short form) - Note Progress Note: Pt of Dr Reed No complaints except she has a poor appetite Vital Signs - 24 hr 10/08/19 10/08/19 10/08/19 13:48 19:11 19:30 Temperature 97.5 F L 97.5 F L 97.6 F Pulse Rate 57 L Pulse Rate [ 59 L 58 L Right Radial] Respiratory 14 18 18 Rate Blood Pressure 169/81 Blood Pressure 183/60 H 193/76 H [Right Arm] O2 Sat by Pulse 96 94 L 97 Oximetry (%) 10/09/19 10/09/19 10/09/19 03:52 05:30 06:05 Temperature 97.7 F 97.5 F L Pulse Rate 61 Pulse Rate [ 60 Right Radial] Respiratory 18 18 Rate Blood Pressure 182/75 H Blood Pressure 147/75 [Right Arm] O2 Sat by Pulse 92 L 94 L Oximetry (%) 10/09/19 10/09/19 10/09/19 06:20 07:06 09:18 Temperature 98 F Pulse Rate 58 L 64 Pulse Rate [ Right Radial] Respiratory 18 18 Rate Blood Pressure 159/79 149/70 Blood Pressure [Right Arm] O2 Sat by Pulse 94 L Oximetry (%) Current Medications Generic Name Dose Route Start Last Admin Trade Name Freq PRN Reason Stop Dose Admin Donepezil HCl 10 mg 10/08/19 22:00 10/08/19 22:21 Aricept - PO 10 mg HS [facility] Administration Duloxetine HCl 90 mg 10/10/19 10:00 Cymbalta - PO DAILY [facility] Enoxaparin Sodium 40 mg 10/08/19 20:15 10/09/19 11:18 Lovenox - SQ 40 mg DAILY [facility] Administration Ceftriaxone Sodium 1 gm/ 50 mls @ 100 mls/hr 10/09/19 10:00 10/09/19 11:17 Dextrose IVPB 100 mls/hr DAILY [facility] Administration Potassium Chloride/Dextrose/Sod Cl 20 meq in 1,000 mls @ 50 mls/hr 10/08/19 20 :30 10/09/19 04:25 D5-1/2ns+20 Meq Kcl - IV 50 mls/hr ASDIR [facility] Administration Potassium Chloride 10 meq in 100 mls @ 100 mls/hr 10/09/19 11:45 10/09/19 12: 37 Potassium Chloride 10 Meq Premix Ivpb - IVPB 10/09/19 14:44 100 mls/hr Q60M [facility] Administration Memantine 10 mg 10/09/19 10:30 10/09/19 11:17 Namenda - PO 10 mg BID [facility] Administration Metoprolol Succinate 50 mg 10/09/19 10:00 Toprol Xl - PO DAILY [facility] Pantoprazole Sodium 40 mg 10/09/19 10:00 10/09/19 11:17 Protonix - PO 40 mg DAILY [facility] Administration Laboratory Results - last 24 hr 10/08/19 10/08/19 10/08/19 15:20 15:20 15:20 WBC 9.4 RBC 4.45 Hgb 13.6 Hct 41.5 MCV 93.2 MCH 30.5 MCHC 32.7 RDW 14.4 Plt Count 223 MPV 9.7 Absolute Neuts (auto) 6.6 Neutrophils % 69.9 Lymphocytes % 18.6 Monocytes % 9.3 Eosinophils % 1.7 D Basophils % 0.5 Nucleated RBC % 0 Sodium 138 Potassium 3.8 Chloride 103 Carbon Dioxide 27 Anion Gap 8 BUN 12.9 Creatinine 0.7 Est GFR (CKD-EPI)AfAm 90.29 Est GFR (CKD-EPI)NonAf 77.90 Random Glucose 90 Calcium 9.1 Total Bilirubin 1.6 H AST 27 ALT 18 Alkaline Phosphatase 117 Creatine Kinase 78 Troponin I < 0.02 Total Protein 6.3 L Albumin 3.0 L Vitamin B12 TSH 2.55 Urine Color Urine Appearance Urine pH Ur Specific [place] Urine Protein Urine Glucose (UA) Urine Ketones Urine Blood Urine Nitrite Urine Bilirubin Urine Urobilinogen Ur Leukocyte Esterase Urine WBC (Auto) Urine RBC (Auto) Urine Casts (Auto) U Epithel Cells (Auto) Urine Bacteria (Auto) Urine Yeast (Auto) 10/08/19 10/09/19 10/09/19 15:20 07:45 07:45 WBC 8.0 RBC 4.21 Hgb 12.9 Hct 39.0 MCV 92.7 MCH 30.7 MCHC 33.1 RDW 14.1 Plt Count 197 MPV 9.2 Absolute Neuts (auto) 5.2 Neutrophils % 65.2 Lymphocytes % 19.0 Monocytes % 11.1 H Eosinophils % 4.1 D Basophils % 0.6 Nucleated RBC % 0 Sodium 140 Potassium 3.0 L Chloride 105 Carbon Dioxide 27 Anion Gap 8 BUN 11.6 Creatinine 0.6 Est GFR (CKD-EPI)AfAm 94.99 Est GFR (CKD-EPI)NonAf 81.95 Random Glucose 101 Calcium 8.5 Total Bilirubin 1.4 H AST 13 L ALT 16 Alkaline Phosphatase 104 Creatine Kinase Troponin I Total Protein 5.4 L Albumin 2.7 L Vitamin B12 406 TSH Urine Color Dk yellow Urine Appearance Turbid Urine pH 6.5 Ur Specific [place] 1.014 Urine Protein 1+ H Urine Glucose (UA) Negative Urine Ketones 1+ H Urine Blood 2+ H Urine Nitrite Negative Urine Bilirubin 1+ H Urine Urobilinogen 2.0 H Ur Leukocyte Esterase 3+ H Urine WBC (Auto) 1185 Urine RBC (Auto) 15.3 Urine Casts (Auto) 8 U Epithel Cells (Auto) 4.0 Urine Bacteria (Auto) 145.9 Urine Yeast (Auto) None seen s1 S2 RRR Lungs decreased Abd- soft, NT no edema Renal sono-- renal lipomatosis CXR-- no acute process EKG-- sinus bradycardia PLAN IV fluids Potassium being replaced iv antibiotics -urine cultures pending blood cultures add ensure supplement Problem List - Problems (1) Fatigue Code(s): R53.83 - OTHER FATIGUE (2) Hypokalemia Code(s): E87.6 - HYPOKALEMIA (3) Muscle weakness (generalized) Code(s): M62.81 - MUSCLE WEAKNESS (GENERALIZED) (4) UTI (urinary tract infection) Code(s): N39.0 - URINARY TRACT INFECTION, SITE NOT SPECIFIED Qualifiers: Urinary tract infection type: acute cystitis Hematuria presence: without hematuria Qualified Code(s): N30.00 - Acute cystitis without hematuria
[2019-10-09] MEDS: DONEPEZIL HCL 10 MG TABLET (FP) PO SCH (23:56)
[2019-10-10 08:52] LABS: BASO % 0.4 % (0-2.0); EOS % 7.8 % (0-4.5); HEMATOCRIT 37.7 % (32.4-45.2); HEMOGLOBIN 12.5 GM/dL (10.7-15.3); LYMPH % 23.5 % (8-40); MCH 30.9 pg (25.7-33.7); MCHC 33.2 g/dl (32.0-36.0); MEAN PLT VOLUME 8.9 fl (7.5-11.1); MONO % 11.3 % (3.8-10.2); PLATELET COUNT 191 K/MM3 (134-434); RBC 4.05 M/mm3 (3.60-5.2); RDW 14.4 % (11.6-15.6); WHITE BLOOD COUNT 7.7 K/mm3 (4.0-10.0)
[2019-10-10] MEDS ORDERED: cefTRIAXone SODIUM 1 GM VIAL ONE (08:59)
[2019-10-10] MEDS ORDERED: DEXTROSE 5%-WATER - 50 ML IVPB ONE (08:59)
[2019-10-10 09:19] LABS: ALBUMIN 2.6 g/dl (3.4-5.0); BLOOD UREA NITROGEN 10.2 mg/dL (7-18); CALCIUM 8.5 mg/dL (8.5-10.1); CREATININE 0.6 mg/dL (0.55-1.3); POTASSIUM 3.6 mmol/L (3.5-5.1); TOT PROT 5.2 g/dl (6.4-8.2)
[2019-10-10] MEDS: ENOXAPARIN NA (PORCINE) 40 MG/0.4 ML DISP.SYRIN SQ SCH (09:19)
[2019-10-10] MEDS: CEFTRIAXONE 1 GM in DEXTROSE 5%-WATER - 50 ML IVPB SCH (09:19)
[2019-10-10] MEDS: MEMANTINE HCL 10 MG TABLET (FP) PO SCH ×2 (09:19→21:36)
[2019-10-10] MEDS: PANTOPRAZOLE 40 MG TABLET PO SCH (09:19)
--- NOTE | 2019-10-10 10:27 | PN ---
Progress Note (short form) - Note Progress Note: ID consult dictated imp/reccd 89 yo female admitted from assisted living with generalized weakness, recent macrobid for 7 days after ED visit to COUNTS INCLUDE 234 BEDS AT [facility] on 10/02 still with dysuria and pyuria no history of MDRO weakness-?uti, ?macrobid UTI-continue ceftriaxone, f/u cultures mild dementia Problem List - Problems (1) Weakness Code(s): R53.1 - WEAKNESS (2) UTI (urinary tract infection) Code(s): N39.0 - URINARY TRACT INFECTION, SITE NOT SPECIFIED Qualifiers: Urinary tract infection type: acute cystitis Hematuria presence: without hematuria Qualified Code(s): N30.00 - Acute cystitis without hematuria (3) Dementia Code(s): F03.90 - UNSPECIFIED DEMENTIA WITHOUT BEHAVIORAL DISTURBANCE
[2019-10-10] MEDS: DULoxetine HCL 30 MG CAPSULE.DR PO SCH (11:29)
--- NOTE | 2019-10-10 12:14 | PN ---
Progress Note (short form) - Note Progress Note: Pt of Dr Reed No complaints except she has a poor appetite is depressed Vital Signs - 24 hr 10/09/19 10/09/19 10/09/19 14:00 18:05 19:47 Temperature 98.4 F 97.6 F Pulse Rate 61 60 64 Respiratory 18 18 Rate Blood Pressure 142/62 166/58 L 156/75 O2 Sat by Pulse Oximetry (%) 10/09/19 10/10/19 10/10/19 21:00 02:00 06:00 Temperature 97.5 F L 97.3 F L Pulse Rate 66 71 Respiratory 18 18 Rate Blood Pressure 153/71 154/84 O2 Sat by Pulse 95 Oximetry (%) 10/10/19 09:00 Temperature 97.3 F L Pulse Rate 66 Respiratory 18 Rate Blood Pressure 176/72 H O2 Sat by Pulse Oximetry (%) Current Medications Generic Name Dose Route Start Last Admin Trade Name Freq PRN Reason Stop Dose Admin Donepezil HCl 10 mg 10/08/19 22:00 10/09/19 23:56 Aricept - PO 10 mg HS [facility] Administration Duloxetine HCl 90 mg 10/10/19 10:00 10/10/19 11:29 Cymbalta - PO 90 mg DAILY [facility] Administration Enoxaparin Sodium 40 mg 10/08/19 20:15 10/10/19 09:19 Lovenox - SQ 40 mg DAILY [facility] Administration Ceftriaxone Sodium 1 gm/ 50 mls @ 100 mls/hr 10/09/19 10:00 10/10/19 09:19 Dextrose IVPB 100 mls/hr DAILY [facility] Administration Potassium Chloride/Dextrose/Sod Cl 20 meq in 1,000 mls @ 50 mls/hr 10/08/19 20 :30 10/09/19 18:38 D5-1/2ns+20 Meq Kcl - IV 50 mls/hr ASDIR [facility] Administration Memantine 10 mg 10/09/19 10:30 10/10/19 09:19 Namenda - PO 10 mg BID [facility] Administration Metoprolol Succinate 50 mg 10/09/19 10:00 10/10/19 09:43 Toprol Xl - PO 50 mg DAILY [facility] Administration Pantoprazole Sodium 40 mg 10/09/19 10:00 10/10/19 09:19 Protonix - PO 40 mg DAILY [facility] Administration Laboratory Results - last 24 hr 10/10/19 10/10/19 08:08 08:08 WBC 7.7 RBC 4.05 Hgb 12.5 Hct 37.7 MCV 93.0 MCH 30.9 MCHC 33.2 RDW 14.4 Plt Count 191 MPV 8.9 Absolute Neuts (auto) 4.4 Neutrophils % 57.0 Lymphocytes % 23.5 D Monocytes % 11.3 H Eosinophils % 7.8 H D Basophils % 0.4 Nucleated RBC % 0 Sodium 138 Potassium 3.6 Chloride 105 Carbon Dioxide 26 Anion Gap 6 L BUN 10.2 Creatinine 0.6 Est GFR (CKD-EPI)AfAm 94.99 Est GFR (CKD-EPI)NonAf 81.95 Random Glucose 106 Calcium 8.5 Total Bilirubin 1.0 AST 15 ALT 15 Alkaline Phosphatase 103 Total Protein 5.2 L Albumin 2.6 L Microbiology 10/08/19 15:20 Urine Culture - Preliminary Urine - Urine - Catheterized Proteus Species 10/09/19 03:30 Blood Culture - Preliminary Blood - Peripheral Venous NO GROWTH OBTAINED AFTER 24 HOURS, INCUBATION TO CONTINUE FOR 4 DAYS. 10/09/19 03:30 Blood Culture - Preliminary Blood - Peripheral Venous NO GROWTH OBTAINED AFTER 24 HOURS, INCUBATION TO CONTINUE FOR 4 DAYS. s1 S2 RRR Lungs decreased Abd- soft, NT no edema Renal sono-- renal lipomatosis CXR-- no acute process EKG-- sinus bradycardia PLAN IV fluids psych eval add remeron iv antibiotics -urine cultures proteus ID eval noted blood cultures negative add ensure supplement Problem List - Problems (1) Fatigue Code(s): R53.83 - OTHER FATIGUE (2) Hypokalemia Code(s): E87.6 - HYPOKALEMIA (3) Muscle weakness (generalized) Code(s): M62.81 - MUSCLE WEAKNESS (GENERALIZED) (4) UTI (urinary tract infection) Code(s): N39.0 - URINARY TRACT INFECTION, SITE NOT SPECIFIED Qualifiers: Urinary tract infection type: acute cystitis Hematuria presence: without hematuria Qualified Code(s): N30.00 - Acute cystitis without hematuria
--- NOTE | 2019-10-10 13:37 | PN ---
Progress Note, Physician Chief Complaint: Patient seen and examined at the bedside, poor appetite, feeling depressed, reports "I don't want to live anymore." History of Present Illness: This 89 yr old w/f with hx of mild dementia, hypertension, recurrent UTI, and depression admitted via ER with an acute UTI. - Current Medication List Current Medications: Active Medications Donepezil HCl (Aricept -) 10 mg PO [facility] Last Admin: 10/09/19 23:56 Dose: 10 mg Duloxetine HCl (Cymbalta -) 90 mg PO DAILY [facility] Last Admin: 10/10/19 11:29 Dose: 90 mg Enoxaparin Sodium (Lovenox -) 40 mg SQ DAILY [facility] Last Admin: 10/10/19 09:19 Dose: 40 mg Ceftriaxone Sodium 1 gm/ (Dextrose) 50 mls @ 100 mls/hr IVPB DAILY [facility] Last Admin: 10/10/19 09:19 Dose: 100 mls/hr Potassium Chloride/Dextrose/Sod Cl (D5-1/2ns+20 Meq Kcl -) 20 meq in 1,000 mls @ 50 mls/hr IV ASDIR [facility] Last Admin: 10/09/19 18:38 Dose: 50 mls/hr Memantine (Namenda -) 10 mg PO BID [facility] Last Admin: 10/10/19 09:19 Dose: 10 mg Metoprolol Succinate (Toprol Xl -) 50 mg PO DAILY [facility] Last Admin: 10/10/19 09:43 Dose: 50 mg Mirtazapine (Remeron -) 7.5 mg PO [facility] Pantoprazole Sodium (Protonix -) 40 mg PO DAILY [facility] Last Admin: 10/10/19 09:19 Dose: 40 mg - Objective Vital Signs: Vital Signs Temperature 97.3 F L 10/10/19 09:00 Pulse Rate 66 10/10/19 09:00 Respiratory Rate 18 10/10/19 09:00 Blood Pressure 176/72 H 10/10/19 09:00 O2 Sat by Pulse Oximetry (%) 95 10/09/19 21:00 Constitutional: Yes: Well Nourished, No Distress, Other (depressed) Eyes: Yes: Conjunctiva Clear, EOM Intact HENT: Yes: Atraumatic, Normocephalic Neck: Yes: Supple, Trachea Midline Cardiovascular: Yes: Regular Rate and Rhythm Respiratory: Yes: Regular, CTA Bilaterally Gastrointestinal: Yes: Normal Bowel Sounds, Soft ...Rectal Exam: Yes: Deferred Genitourinary: Yes: WNL Breast(s): Yes: WNL Musculoskeletal: Yes: Muscle Weakness Extremities: Yes: Other (generalized muscle weakness of all extremities) Edema: No Peripheral Pulses WNL: Yes Peripheral Pulses: Left Radial: 2+, Right Radial: 2+, Left Doralis Pedis: 2+, Right Dorsalis Pedis: 2+, Left Femoral: 2+, Right Femoral: 2+ Integumentary: Yes: WNL Neurological: Yes: Alert, Unsteady Gait, Weakness ...Motor Strength: LUE (generalized muscle weakness of all extremities) Psychiatric: Yes: Alert Labs: CBC, BMP 10/10/19 08:08 10/10/19 08:08 - ....Imaging Other: Report Reviewed (Lab data reviewed) Problem List - Problems (1) Hypokalemia Code(s): E87.6 - HYPOKALEMIA (2) Muscle weakness (generalized) Code(s): M62.81 - MUSCLE WEAKNESS (GENERALIZED) (3) Fatigue Code(s): R53.83 - OTHER FATIGUE (4) HTN (hypertension) Code(s): I10 - ESSENTIAL (PRIMARY) HYPERTENSION (5) Depression Code(s): F32.9 - MAJOR DEPRESSIVE DISORDER, SINGLE EPISODE, UNSPECIFIED (6) UTI (urinary tract infection) Code(s): N39.0 - URINARY TRACT INFECTION, SITE NOT SPECIFIED Qualifiers: Urinary tract infection type: acute cystitis Hematuria presence: without hematuria Qualified Code(s): N30.00 - Acute cystitis without hematuria Assessment/Plan Assessment/plan: acute UTI, acute exacerbation of depression, acute anorexia; IV fluids, IV Ceftriaxone, physical therapy, consult to Psychiatrist, DVT prophylaxis.
[2019-10-10] MEDS: LOSARTAN POTASSIUM 25 MG TABLET PO SCH (14:30)
--- NOTE | 2019-10-10 14:34 | CONS ---
INFECTIOUS DISEASE CONSULTATION DATE OF CONSULTATION: DATE OF DICTATION: 10/10/2019 HISTORY OF PRESENT ILLNESS: This is an 89-year-old woman who is living in assisted living. She has a history of some mild dementia. She was recently seen after a fall, October 02, [place]. At that time, she was noted to have a UTI and treated with Macrobid for 7 days. She is now sent back to the hospital with complaint of generalized weakness. Of note, she notes she still has some dysuria and overall she does not feel well. PAST MEDICAL HISTORY: She has a past medical history of hypertension, osteoarthritis, and dementia. SURGICAL HISTORY: She had right hip and leg surgery. SOCIAL HISTORY: She lives in assisted living. ALLERGIES: She has no known drug allergies. MEDICATIONS: As an outpatient include Aricept, duloxetine, meclizine, metoprolol, the recent Macrodantin, Namenda, as well as omeprazole. REVIEW OF SYSTEMS: She notes generalized weakness, some minimal dysuria. She overall states she does not feel well, but she has no abdominal or chest pain. She has no cough or shortness of breath. PHYSICAL EXAMINATION: Vital Signs: Her temperature is 97.3. She has been afebrile since admission. Pulse of 66, blood pressure 176/72, respiratory rate is 18. She is saturating 95% on room air. HEENT: She is normocephalic. Her eyes are anicteric. Neck: Supple. Lungs: Clear to auscultation. Heart: Regular rate and rhythm. Abdomen: Soft. Nontender. Extremities: Without edema. LABORATORIES: White count is 7.7, hemoglobin 12.5, platelets are 191. Her eosinophils are 7.8. BUN and creatinine are 10 and 0.6. LFTs are normal. Urinalysis has 2+ leuks with 1185 white cells. Urine culture is growing proteus. Blood cultures are negative. IMAGING: She had a chest x-ray done on admission that shows clear lungs. She had a renal ultrasound done that shows bilateral renal sinus lipomatosis with no stones or hydro. She is noted to have a gallbladder with a gallstone and no wall thickening. In summary, this is an 89-year-old woman with mild dementia, admitted for a UTI. Would continue ceftriaxone and follow up cultures. She has no history of multidrug-resistant organisms. Can hopefully transition her to oral antibiotics once the sensibilities are available. Further recommendations to follow. Rosette [id number]
[2019-10-10 15:14] VITALS: BMI 24.2
[2019-10-10] MEDS: D5-1/2NS+20 MEQ KCL - 20 MEQ/1,000 ML INFUS.BAG IV SCH (15:29)
--- NOTE | 2019-10-10 17:53 | CON.PSY ---
Psychiatry Consult Chief Complaint: 89 Cici old Female admitted for UTI from an assited living seen for Psych consult. apparantly said I dont want to live anymore. No reports of any self damging behavior. On anti depressants at this time. Symptoms: reports: Depressed Mood, Impaired Concentration, Memory Impairment - Previous Psychiatric Treatment Outpatient: None Inpatient: None - Previous Substance Abuse Treatment Outpatient: None Inpatient: None - Reason for Previous Treatment Reason for Previous Treatment: Major Depression - Current Medications Current Medications: Active Medications Donepezil HCl (Aricept -) 10 mg PO [facility] Last Admin: 10/09/19 23:56 Dose: 10 mg Duloxetine HCl (Cymbalta -) 90 mg PO DAILY [facility] Last Admin: 10/10/19 11:29 Dose: 90 mg Enoxaparin Sodium (Lovenox -) 40 mg SQ DAILY [facility] Last Admin: 10/10/19 09:19 Dose: 40 mg Ceftriaxone Sodium 1 gm/ (Dextrose) 50 mls @ 100 mls/hr IVPB DAILY [facility] Last Admin: 10/10/19 09:19 Dose: 100 mls/hr Potassium Chloride/Dextrose/Sod Cl (D5-1/2ns+20 Meq Kcl -) 20 meq in 1,000 mls @ 60 mls/hr IV ASDIR [facility] Last Admin: 10/10/19 15:29 Dose: 60 mls/hr Losartan Potassium (Cozaar -) 25 mg PO DAILY [facility] Last Admin: 10/10/19 14:30 Dose: 25 mg Memantine (Namenda -) 10 mg PO BID [facility] Last Admin: 10/10/19 09:19 Dose: 10 mg Metoprolol Succinate (Toprol Xl -) 50 mg PO DAILY [facility] Last Admin: 10/10/19 09:43 Dose: 50 mg Mirtazapine (Remeron -) 7.5 mg PO [facility] Pantoprazole Sodium (Protonix -) 40 mg PO DAILY [facility] Last Admin: 10/10/19 09:19 Dose: 40 mg - Allergies Allergies: Allergies Allergy/AdvReac Type Severity Reaction Status Date / Time No Known Drug Allergies Allergy Verified 07/17/19 21:20 - Current Living Status Usual Living Arrangement: Assisted Living - Current Mental Status Evaluation Appearance: Well Groomed Attitude: Cooperative - Affect Affect: Constrictive Appropriateness: Appropriate to Content - Mood Mood: Irritable - Speech/Language Expressive: Delayed - Psychomotor Activity Psychomotor Activity: Slowed - Thought Process Thought Process: Circumstantial - Thought Content Hallucinations: Absent Delusions: Absent - Self Perception Self Perception: No Impairment - Cognition Attention: Alert Memory, Immediate Recall: Impaired Memory, Short Term: 2/3 Memory, Remote with Promptin/3 - Concentration Serial Sevens Intact: No Simple Calculations Intact: No - Abstraction Proverb Interpretation: Impaired Judgement: Minimally Impaired - Insight Insight: Intact - Impulse Control Impulse Control: Good Control - Suicidal Ideation Suicidal Ideation: No - Homicidal Ideation Homicidal Ideation: No Assessment/Plan 1) Patient has no [place] Plans to kill herself, confused and forgetful. 2) continue with [facility] Psych meds.
[2019-10-10] MEDS: DONEPEZIL HCL 10 MG TABLET (FP) PO SCH (21:36)
[2019-10-10] MEDS ORDERED: MIRTAZAPINE 15 MG TABLET (FP) PO SCH (22:00)
[2019-10-11 09:12] LABS: BASO % 0.3 % (0-2.0); HEMATOCRIT 38.4 % (32.4-45.2); HEMOGLOBIN 12.7 GM/dL (10.7-15.3); LYMPH % 23.1 % (8-40); MCH 30.7 pg (25.7-33.7); MCHC 33.1 g/dl (32.0-36.0); MEAN CELL VOLUME 92.7 fl (80-96); MEAN PLT VOLUME 9.3 fl (7.5-11.1); MONO % 11.2 % (3.8-10.2); NEUT % 56.4 % (42.8-82.8); PLATELET COUNT 199 K/MM3 (134-434); RBC 4.14 M/mm3 (3.60-5.2); RDW 14.5 % (11.6-15.6)
[2019-10-11] MEDS: D5-1/2NS+20 MEQ KCL - 20 MEQ/1,000 ML INFUS.BAG IV SCH ×2 (09:23→10:13)
[2019-10-11 09:54] LABS: ALBUMIN 2.8 g/dl (3.4-5.0); BILIRUBIN,TOTAL 0.9 mg/dL (0.2-1); BLOOD UREA NITROGEN 11.2 mg/dL (7-18); CREATININE 0.7 mg/dL (0.55-1.3); TOT PROT 5.6 g/dl (6.4-8.2)
[2019-10-11] MEDS ORDERED: DEXTROSE 5%-WATER - 50 ML IVPB ONE (10:03)
[2019-10-11] MEDS ORDERED: cefTRIAXone SODIUM 1 GM VIAL ONE (10:03)
[2019-10-11] MEDS: PANTOPRAZOLE 40 MG TABLET PO SCH (10:12)
[2019-10-11] MEDS: CEFTRIAXONE 1 GM in DEXTROSE 5%-WATER - 50 ML IVPB SCH (10:12)
[2019-10-11] MEDS: LOSARTAN POTASSIUM 25 MG TABLET PO SCH (10:13)
[2019-10-11] MEDS: MEMANTINE HCL 10 MG TABLET (FP) PO SCH (10:13)
[2019-10-11] MEDS: ENOXAPARIN NA (PORCINE) 40 MG/0.4 ML DISP.SYRIN SQ SCH (10:13)
[2019-10-11] MEDS: DULoxetine HCL 30 MG CAPSULE.DR PO SCH (11:51)
--- NOTE | 2019-10-11 13:16 | PN ---
Progress Note (short form) - Note Progress Note: spoke with DR Aguilar-- he will resume care of pt Problem List - Problems (1) Fatigue Code(s): R53.83 - OTHER FATIGUE (2) Hypokalemia Code(s): E87.6 - HYPOKALEMIA (3) Muscle weakness (generalized) Code(s): M62.81 - MUSCLE WEAKNESS (GENERALIZED) (4) UTI (urinary tract infection) Code(s): N39.0 - URINARY TRACT INFECTION, SITE NOT SPECIFIED Qualifiers: Urinary tract infection type: acute cystitis Hematuria presence: without hematuria Qualified Code(s): N30.00 - Acute cystitis without hematuria
--- NOTE | 2019-10-11 13:18 | PN ---
Progress Note, Physician Chief Complaint: Patient seen and examined at the bedside, appears less depressed, fair appetite , better mood. History of Present Illness: This 89 yr old w/f with hx of hypertension, dementia, recurrent UTI, and depression admitted via ER with acute exacerbation of UTI, and acute dehydration. - Current Medication List Current Medications: Active Medications Donepezil HCl (Aricept -) 10 mg PO HS [facility] Last Admin: 10/10/19 21:36 Dose: 10 mg Duloxetine HCl (Cymbalta -) 90 mg PO DAILY [facility] Last Admin: 10/11/19 11:51 Dose: 90 mg Enoxaparin Sodium (Lovenox -) 40 mg SQ DAILY [facility] Last Admin: 10/11/19 10:13 Dose: 40 mg Ceftriaxone Sodium 1 gm/ (Dextrose) 50 mls @ 100 mls/hr IVPB DAILY [facility] Last Admin: 10/11/19 10:12 Dose: 100 mls/hr Potassium Chloride/Dextrose/Sod Cl (D5-1/2ns+20 Meq Kcl -) 20 meq in 1,000 mls @ 60 mls/hr IV ASDIR [facility] Last Admin: 10/11/19 10:13 Dose: 60 mls/hr Losartan Potassium (Cozaar -) 25 mg PO DAILY [facility] Last Admin: 10/11/19 10:13 Dose: 25 mg Memantine (Namenda -) 10 mg PO BID [facility] Last Admin: 10/11/19 10:13 Dose: 10 mg Metoprolol Succinate (Toprol Xl -) 50 mg PO DAILY [facility] Last Admin: 10/11/19 10:12 Dose: 50 mg Mirtazapine (Remeron -) 7.5 mg PO HS [facility] Last Admin: 10/10/19 21:36 Dose: 7.5 mg Pantoprazole Sodium (Protonix -) 40 mg PO DAILY [facility] Last Admin: 10/11/19 10:12 Dose: 40 mg - Objective Vital Signs: Vital Signs Temperature 97.9 F 10/11/19 10:00 Pulse Rate 81 10/11/19 10:00 Respiratory Rate 18 10/11/19 10:00 Blood Pressure 193/86 H 10/11/19 10:00 O2 Sat by Pulse Oximetry (%) 94 L 10/11/19 10:00 Constitutional: Yes: Well Nourished, No Distress, Calm Eyes: Yes: Conjunctiva Clear, EOM Intact HENT: Yes: Atraumatic, Normocephalic Neck: Yes: Supple, Trachea Midline Cardiovascular: Yes: Regular Rate and Rhythm Respiratory: Yes: Regular, CTA Bilaterally Gastrointestinal: Yes: Normal Bowel Sounds, Soft ...Rectal Exam: Yes: Deferred Genitourinary: Yes: WNL Breast(s): Yes: WNL Musculoskeletal: Yes: Muscle Weakness Extremities: Yes: Other (generalized muscle weakness) Edema: No Peripheral Pulses WNL: Yes Peripheral Pulses: Left Radial: 2+, Right Radial: 2+, Left Doralis Pedis: 2+, Right Dorsalis Pedis: 2+, Left Femoral: 2+, Right Femoral: 2+ Integumentary: Yes: WNL Neurological: Yes: Alert, Unsteady Gait, Weakness ...Motor Strength: LUE (genealized muscle weakness of all extremities) Psychiatric: Yes: Alert Labs: CBC, BMP 10/11/19 07:59 10/11/19 07:59 - ....Imaging Other: Report Reviewed (Lab data reviewed, Psych noted read and appreciated.) Problem List - Problems (1) Hypokalemia Code(s): E87.6 - HYPOKALEMIA (2) Muscle weakness (generalized) Code(s): M62.81 - MUSCLE WEAKNESS (GENERALIZED) (3) Fatigue Code(s): R53.83 - OTHER FATIGUE (4) HTN (hypertension) Code(s): I10 - ESSENTIAL (PRIMARY) HYPERTENSION (5) Depression Code(s): F32.9 - MAJOR DEPRESSIVE DISORDER, SINGLE EPISODE, UNSPECIFIED (6) UTI (urinary tract infection) Code(s): N39.0 - URINARY TRACT INFECTION, SITE NOT SPECIFIED Qualifiers: Urinary tract infection type: acute cystitis Hematuria presence: without hematuria Qualified Code(s): N30.00 - Acute cystitis without hematuria Assessment/Plan Assessment/plan: acute UTI, acute dehydration, uncontrolled hypertension, generalized muscle weakness, acute unsteadiness on feet, acute depression; IV fluids, IV Ceftriaxone, physical therapy, DVT prophylaxis, discharge planning, social services assistant request, transfer to [facility], discussed clinical condition of the patient with the family, their wish is to have the patient placed in [facility]. Total time spent 30 minutes.
[2019-10-11 14:23] LABS: PLATELET ESTIMATE NORMAL
[2019-10-11 15:52] VITALS: BP 125/76; PULSE 69; TEMP 97.7
--- NOTE | 2019-10-11 18:12 | DS ---
Physical Examination Vital Signs: Vital Signs Temperature 97.7 F 10/11/19 14:00 Pulse Rate 69 10/11/19 14:00 Respiratory Rate 18 10/11/19 14:00 Blood Pressure 125/76 10/11/19 14:00 O2 Sat by Pulse Oximetry (%) 94 L 10/11/19 10:00 Constitutional: Yes: Well Nourished, No Distress, Calm Eyes: Yes: Conjunctiva Clear, EOM Intact HENT: Yes: Atraumatic, Normocephalic Neck: Yes: Supple, Trachea Midline Cardiovascular: Yes: Regular Rate and Rhythm Respiratory: Yes: Regular, CTA Bilaterally Gastrointestinal: Yes: Normal Bowel Sounds, Soft ...Rectal Exam: Yes: Deferred Renal/: Yes: WNL Breast(s): Yes: WNL Musculoskeletal: Yes: Muscle Weakness Extremities: Yes: Other (generalized muscle weakness) Edema: No Peripheral Pulses WNL: Yes Peripheral Pulses: Left Radial: 2+, Right Radial: 2+, Left Doralis Pedis: 2+, Right Dorsalis Pedis: 2+, Left Femoral: 2+, Right Femoral: 2+ Integumentary: Yes: WNL Neurological: Yes: Alert ...Motor Strength: LUE (generalized muscle weakness) Psychiatric: Yes: Alert Labs: CBC, BMP 10/11/19 07:59 10/11/19 07:59 Discharge Summary Problems reviewed: Yes Reason For Visit: URINARY TRACT INFECTION Condition: Stable - Instructions Diet, Activity, Other Instructions: Continue home meds. Duloxetine 90mg po od. Physical therapy. Activity as tolerated. Transfer to [facility]. Total time spent over 30 minutes. Referrals: Iván Reed MD [Primary Care Provider] - Disposition: [facility] - Home Medications Comprehensive Discharge Medication List: Ambulatory Orders Acetaminophen 500 mg PO TID 10/02/19 Donepezil HCl [Aricept] 10 mg PO HS 10/02/19 Metoprolol Succinate [Toprol Xl] 50 mg PO DAILY 10/02/19 Memantine HCl [Namenda Xr] 28 mg PO DAILY 10/08/19 Duloxetine HCl [Cymbalta -] 90 mg PO DAILY capsule. 10/11/19 Losartan Potassium [Cozaar -] 25 mg PO DAILY tablet 10/11/19 Losartan Potassium [Cozaar -] 50 mg PO DAILY tablet 10/11/19 Mirtazapine [Remeron -] 7.5 mg PO HS tablet 10/11/19 Pantoprazole Sodium [Protonix -] 40 mg PO DAILY tablet.ec 10/11/19
[2019-10-12] MEDS ORDERED: LOSARTAN POTASSIUM 25 MG TABLET PO SCH (10:00)
== END 2019-10-11 16:15 | DRG 690 ==
LOC: JER 13:34 → JERBED 18:10 → J5S 10-09 03:59
PROVIDERS: ADMIT Internal Medicine; ATTEND Internal Medicine
DX: N39.0 Urinary tract infection, site not specified (principal); F03.91 Unspecified dementia, unspecified severity, with behavioral disturbance; E87.6 Hypokalemia; M62.81 Muscle weakness (generalized); I10 Essential (primary) hypertension; R53.83 Other fatigue; E86.0 Dehydration; F32.9 Major depressive disorder, single episode, unspecified
CPT/HCPCS: 36415; 71045-TC-FY; 76775-TC; 80053; 81003; 82550; 82607; 84443; 84484; 85025; 87040; 87045; 87046; 87086; 87186; 93005; 93010; 97116-GP; 97161-GP; 99284-25

== ENCOUNTER 2021-04-18 19:12 | Emergency (ER) | payer OTHER, BC ==
[2021-04-18 19:42] VITALS: TEMP 98.4; BMI 23.3
[2021-04-18] MEDS ORDERED: BACITRACIN 0.9 GM PACKET ONE (20:29)
[2021-04-18] MEDS ORDERED: BACITRACIN 0.9 GM PACKET TP ONE (20:31)
[2021-04-18 21:14] LABS: BASO % 0.5 % (0-2.0); EOS % 0.3 % (0-4.5); HEMOGLOBIN 13.8 GM/dL (10.7-15.3); LYMPH % 8.7 % (8-40); MCH 31.7 pg (25.7-33.7); MCHC 33.7 g/dl (32.0-36.0); MEAN CELL VOLUME 94.3 fl (80-96); MEAN PLT VOLUME 8.7 fl (7.5-11.1); MONO % 6.2 % (3.8-10.2); NEUT % 84.3 % (42.8-82.8); PLATELET COUNT 235 10^3/uL (134-434); RBC 4.35 M/mm3 (3.60-5.2); RDW 14.3 % (11.6-15.6); WHITE BLOOD COUNT 14.4 K/mm3 (4.0-10.0)
[2021-04-18 21:30] LABS: CHLORIDE 104 mmol/L (98-107); SODIUM 137 mmol/L (136-145)
[2021-04-18 21:33] LABS: CALCIUM 8.7 mg/dL (8.5-10.1)
[2021-04-18 21:34] LABS: ALBUMIN 3.3 g/dl (3.4-5.0); BLOOD UREA NITROGEN 24.2 mg/dL (7-18); CO2 26 mmol/L (21-32); GLUCOSE,RANDOM 114 mg/dL (74-106)
[2021-04-18 21:36] LABS: CREATININE 0.9 mg/dL (0.55-1.3); SGOT/AST 67 U/L (15-37); SGPT/ALT 28 U/L (13-61)
[2021-04-18 21:38] LABS: BILIRUBIN,TOTAL 0.6 mg/dL (0.2-1); TOT PROT 6.4 g/dl (6.4-8.2)
[2021-04-18 21:40] LABS: ALK PHOS 124 U/L (45-117)
[2021-04-18 21:55] LABS: ANISOCYTOSIS 1+; MACROCYTOSIS 0; PLATELET ESTIMATE NORMAL; TARGET CELLS 0
[2021-04-18 22:23] LABS: ANION GAP 6 MMOL/L (8-16)
[2021-04-19 00:14] LABS: EPI CELLS 12 /uL (0-25.1); HYALINE CASTS 3 /uL (0-3.1); PH,URINE 5.5 (5.0-8.0); URINE APPEARANCE TURBID; URINE BACTERIA >9,000 /uL (0-1359); URINE BILIRUBIN NEGATIVE (NEGATIVE); URINE COLOR YELLOW; URINE GLUCOSE (UA) NEGATIVE (NEGATIVE); URINE KETONE NEGATIVE (NEGATIVE); URINE LEUK ESTERASE 3+ (NEGATIVE); URINE NITRITE POSITIVE (NEGATIVE); URINE PROTEIN TRACE (NEGATIVE); URINE WBC 5016 /uL (0-25.8)
[2021-04-19 00:16] LABS: ALBUMIN 3.3 g/dl (3.4-5.0); BLOOD UREA NITROGEN 24.3 mg/dL (7-18); CALCIUM 8.6 mg/dL (8.5-10.1)
[2021-04-19 00:20] LABS: CREATININE 0.9 mg/dL (0.55-1.3)
[2021-04-19 00:21] LABS: TOT PROT 6.1 g/dl (6.4-8.2)
[2021-04-19] MEDS ORDERED: CEFTRIAXONE 1 GM in DEXTROSE 5%-WATER - 50 ML IVPB ONE (00:58)
[2021-04-19] MEDS ORDERED: CEFTRIAXONE 1 GM/50 ML BAG ONE (01:01)
[2021-04-19 03:13] VITALS: BP 121/62; PULSE 72
[2021-04-19 03:49] LABS: URINE CRYSTALS MODERATE /hpf; YEAST NONE SEEN (NEGATIVE)
== END 2021-04-19 03:15 ==
LOC: JER 19:12
PROC: 3E033GC Introduction of Other Therapeutic Substance into Peripheral Vein, Percutaneous Approach (ICD-10-PCS; principal; 2021-04-18)
DX: S02.2XXA Fracture of nasal bones, initial encounter for closed fracture (principal); N39.0 Urinary tract infection, site not specified; W19.XXXA Unspecified fall, initial encounter
CPT/HCPCS: 36415; 70450-TC; 70486-TC; 72125-TC; 80053; 81003; 85025; 87086; 87186; 93005; 93010; 99285-25